=== PATIENT | female | born 1965 | race Caucasian/White ===

== ENCOUNTER → 2020-06-07 09:19 | Outpatient (BNVA) | payer BC, SELFPAY | PROVIDERS: PCP Internal Medicine; Referring Provider Internal Medicine; Visit Provider Nurse Practitioner | DX: K58.2 Mixed irritable bowel syndrome (principal); K52.831 Collagenous colitis; E11.9 Type 2 diabetes mellitus without complications ==

== ENCOUNTER → 2020-07-19 08:07 | Outpatient (BNVA) | payer BC, SELFPAY | PROVIDERS: PCP Internal Medicine; Referring Provider Internal Medicine; Visit Provider Internal Medicine Endocrinology, Diabetes & Metabolism | DX: E78.00 Pure hypercholesterolemia, unspecified (principal); I10 Essential (primary) hypertension; E11.21 Type 2 diabetes mellitus with diabetic nephropathy; E11.42 Type 2 diabetes mellitus with diabetic polyneuropathy; Z79.4 Long term (current) use of insulin; E66.01 Morbid (severe) obesity due to excess calories; E03.9 Hypothyroidism, unspecified; E55.9 Vitamin D deficiency, unspecified | CPT/HCPCS: 82947 ==

== ENCOUNTER → 2020-08-28 12:32 | Outpatient (BNVA) | payer BC, SELFPAY | PROVIDERS: PCP Internal Medicine; Visit Provider Physician Assistant | DX: M17.12 Unilateral primary osteoarthritis, left knee (principal) | CPT/HCPCS: 20610; J1020 ==

== ENCOUNTER → 2020-09-12 13:06 | Outpatient (BNVA) | payer BC, SELFPAY | PROVIDERS: Visit Provider Physician Assistant | DX: M17.11 Unilateral primary osteoarthritis, right knee (principal) | CPT/HCPCS: 20610; J1020 ==

== ENCOUNTER → 2020-09-23 09:31 | Outpatient (BNVA) | payer BC, SELFPAY | PROVIDERS: Visit Provider Orthopaedic Surgery ==

== ENCOUNTER 2020-09-27 08:00 | Outpatient (RCR) | payer BC, SELFPAY ==
--- NOTE | 2020-08-02 13:28 | MHC.PT.EP ---
[facility] [place] Office [place] Office [place] Office [address] Edvin Kathleen [address] [phone] F: [phone] F: [phone] F: [phone] F: [phone] Physical Therapy Plan of Care Date of Evaluation: 08/02/20 Date of Surgery: N/A Diagnosis: bilateral primary osteoarthritis of knees Assessment: pt presents w/ joint laxity, habitual posturing, and lower extremity weakness contributing to her pain. pt would benefit from generalized strengthening program, postural exercises to reduce genu valgum/recurvatum, and pain management techniques to improve exercise tolerance to promote weight loss. pt presents to physical therapy with pain, decreased range of motion, decreased strength, impaired functional mobility, impaired postural awareness, and gait deviations. pt is a good candidate for skilled PT due to age, potential remediation of impairments, typical disease/condition progression and prognosis, comorbidities, and motivation. pt would benefit from tailored strengthening and stretching exercise program, functional training, gait training, postural re-training, neuromuscular re-education, modalities as needed for pain, equipment safety demonstration. Frequency and Duration: The patient will be seen 2x/wk for 5 wks Short Term Goals: pt will be I w/ HEP to promote self-management of condition. pt will demo proper standing posture of narrow GRETTA, neutral foot/hip alignment, and neutral knee ext to promote equal weightbearing and reduce stress on anterior knee. Retirement Goals: pt will report statistically significant improvement in self-reported outcome measure, LEFI, to promote return to PLOF. pt will report <2/10 B knee pain w/ standing for >8 hours through work to to promote return to PLOF. Treatment Plan: Modalities to reduce pain, spasms and effusion. Manual therapy to restore motion and function. Therapeutic exercise to improve strength and flexibility. Neuromuscular re-education for posture and balance. Therapeutic activities to return to functional activities of daily living. Electronically signed by: Yudi Xavier PT, DPT Please sign and return to therapist. Thank you for your referral.
--- NOTE | 2020-10-11 14:45 | MHC.PT.DC ---
[facility] Office [place] Office [place] Office [address] Edvin Kathleen 140 [facility] [phone] F: [phone] F: [phone] F: [phone] F: [phone] Physical Therapy Discharge Report Diagnosis: bilateral primary osteoarthritis of knees Date of Surgery: N/A Date of Evaluation: 08/02/20 Date of Discharge: 10/11/20 Treatments to Date: 11 Cancellations to Date: 0 No Shows to Date: 0 Discharge Status: Patient Elected to Stop Discharge Summary: The patient called to inform us she had carpal tunnel surgery done recently and was told to avoid pressure on her hand for the next several weeks. She discharged herself from physical therapy. Overall, we were not seeing any improvement of her knee pain with the therapeutic exercises and activities given to her. She was still reporting high levels of pain even after receiving bilateral cortisone injections. The patient may benefit from receiving an MRI of bilateral knees to determine if there is ligamentous or meniscal damage. Electronically signed by: Yudi Xavier PT, DPT Please sign and return to therapist. Thank you for your referral.
== END 2020-10-11 14:45 | disposition other institution (70) ==
LOC: HO.PT 08:00
PROVIDERS: PCP Internal Medicine; Visit Provider Physician Assistant
DX: M17.0 Bilateral primary osteoarthritis of knee (principal)
CPT/HCPCS: 97035; 97110; 97140; 97162; 97530

== ENCOUNTER → 2020-10-08 14:03 | Outpatient (BNVA) | payer BC, SELFPAY | PROVIDERS: PCP Internal Medicine; Visit Provider Physician Assistant ==

== ENCOUNTER 2020-10-10 11:53 | Day surgery (SDC) | payer BC, SELFPAY ==
[2020-10-10 12:28] VITALS: BMI 57.5
[2020-10-10 12:41] VITALS: BP 144/93; PULSE 77; RESP 20; TEMP 36.2; O2SAT 98
[2020-10-10 12:41] LABS: Glucose, Whole Blood 165 mg/dL (60-115)
[2020-10-10 14:15] VITALS: BP 155/86; PULSE 85; RESP 20; TEMP 36; O2SAT 96
--- NOTE | 2020-10-10 14:25 | P.OP_ITS ---
Operative Note Operative Note Date of Service: 10/10/20 Narrative: Preop diagnosis: 1. left Carpal tunnel syndrome Postop diagnosis: 1. left Carpal tunnel syndrome Procedure: 1. left Carpal tunnel release Surgeon: Elissa Holly MD Anesthesia: local block using 1% lidocaine with epinephrine Findings: Thickened transverse carpal ligament. EBL: Less than 5 mL Specimens: None Complications: None Disposition: Brought to recovery room in stable condition Plan: Follow-up for 7-10 days for wound check and suture removal Indications: The patient is 55 years old, with left carpal tunnel syndrome that has been unresponsive to nonoperative management. The risks and benefits of operative treatment including but not limited to risk of damage to blood vessels, nerves, tendons, infection, persistent pain, persistent symptoms, or possible need for additional surgery were discussed with the patient and the patient wishes to proceed with surgery. Procedure: Once consent was obtained a local block was performed using a combination of 1% lidocaine with epinephrine. The patient was then brought back to the operating suite and placed on the operative table in supine position. A tourniquet was applied to the proximal aspect of the left upper extremity and the limb was prepped and draped in a standard surgical fashion. Once assured that we had a good block, a 1.5 cm longitudinal incision was made centered over the left carpal tunnel. The incision was made through the skin to the subcutaneous tissues using a #15 blade. Dissection was made down to the level of the transverse carpal ligament with care being taken to protect the palmar cu taneous nerve. Once the transverse carpal ligament was clearly visualized, a longitudinal incision was made in the transverse carpal ligament 1st using a #15 blade, then using tenotomy scissors under direct visualization. Care was taken to look for and protect the motor branch of the median nerve when seen in this area. Once satisfied with our carpal tunnel release the wound was copiously irrigated with normal saline and hemostasis was obtained with a brief period of local pressure. The skin edges were reapproximated with some 5.0 nylon suture material and a sterile dressing was applied. The patient appears to have tolerated the procedure well and with no complications. All digits were well vascularized at the conclusion of the case.
--- NOTE | 2020-10-10 14:25 | MHC.SHP ---
Pre-Procedural Eval Section B Chief Complaint: carpal tunnel Allergies: Allergies Allergy/AdvReac Type Severity Reaction Status Date / Time amlodipine Allergy Unknown swelling Verified 10/08/20 14:05 amoxicillin Allergy Unknown stomach Verified 10/08/20 14:05 upset canagliflozin [Invokana] Allergy Unknown Unknown Verified 10/08/20 14:05 lisinopril [LISINOPRIL] Allergy Unknown COUGH Verified 10/08/20 14:05 metformin Allergy Unknown Unknown Verified 10/08/20 14:05 metoprolol [METOPROLOL] Allergy Unknown SWELLING Verified 10/08/20 14:05 Plan I have reviewed the history and physical and performed a pertinent physical examination on my patient. No changes have occurred unless specified.
== END 2020-10-10 14:34 | disposition home or self-care (01) ==
PROVIDERS: PCP Internal Medicine; Visit Provider Orthopaedic Surgery
PROC: (CPT 64721; principal; 2020-10-10 13:10)
DX: G56.02 Carpal tunnel syndrome, left upper limb (principal); I10 Essential (primary) hypertension; J45.909 Unspecified asthma, uncomplicated; E11.21 Type 2 diabetes mellitus with diabetic nephropathy; E11.42 Type 2 diabetes mellitus with diabetic polyneuropathy; Z79.4 Long term (current) use of insulin; G47.33 Obstructive sleep apnea (adult) (pediatric); Z79.899 Other long term (current) drug therapy; Z88.1 Allergy status to other antibiotic agents; Z88.8 Allergy status to other drugs, medicaments and biological substances
CPT/HCPCS: 64721; 82947

== ENCOUNTER → 2020-10-21 09:24 | Outpatient (BNVA) | payer BC, SELFPAY | PROVIDERS: PCP Internal Medicine; Visit Provider Orthopaedic Surgery ==

== ENCOUNTER → 2020-11-11 10:52 | Outpatient (BNVA) | payer BC, SELFPAY | PROVIDERS: PCP Internal Medicine; Visit Provider Nurse Practitioner Family ==

== ENCOUNTER → 2020-11-25 10:04 | Outpatient (BNVA) | payer BC, OTHER, SELFPAY | PROVIDERS: PCP Internal Medicine; Visit Provider Nurse Practitioner ==

== ENCOUNTER → 2021-01-10 15:27 | Outpatient (BNVA) | payer OTHER, SELFPAY | PROVIDERS: PCP Internal Medicine; Visit Provider Nurse Practitioner ==

== ENCOUNTER → 2021-02-19 09:48 | Outpatient (BNVA) | payer OTHER, SELFPAY | PROVIDERS: PCP Internal Medicine; Visit Provider Orthopaedic Surgery | DX: G56.03 Carpal tunnel syndrome, bilateral upper limbs (principal); E78.00 Pure hypercholesterolemia, unspecified; I10 Essential (primary) hypertension; E66.01 Morbid (severe) obesity due to excess calories; Z68.43 Body mass index [BMI] 50.0-59.9, adult; Z88.1 Allergy status to other antibiotic agents; Z88.8 Allergy status to other drugs, medicaments and biological substances | CPT/HCPCS: 99212 ==

== ENCOUNTER 2021-03-13 08:52 | Day surgery (SDC) | payer OTHER, SELFPAY ==
[2021-03-13 09:02] VITALS: BP 139/83; PULSE 83; RESP 18; TEMP 36.3; O2SAT 96; BMI 58.4
[2021-03-13 09:28] LABS: Glucose, Whole Blood 156 mg/dL (60-115)
[2021-03-13 11:01] VITALS: BP 126/77; PULSE 70; RESP 20; TEMP 36.6; O2SAT 93
--- NOTE | 2021-03-13 11:10 | MHC.SHP ---
Pre-Procedural Eval Section A Date of Service: 03/13/21 Section B Chief Complaint: carpal tunnel Allergies: Allergies Allergy/AdvReac Type Severity Reaction Status Date / Time amlodipine Allergy Unknown swelling Verified 03/13/21 09:20 amoxicillin Allergy Unknown stomach Verified 03/13/21 09:20 upset canagliflozin [Invokana] Allergy Unknown Unknown Verified 03/13/21 09:20 lisinopril [LISINOPRIL] Allergy Unknown COUGH Verified 03/13/21 09:20 metformin Allergy Unknown Unknown Verified 03/13/21 09:20 metoprolol [METOPROLOL] Allergy Unknown SWELLING Verified 03/13/21 09:20 Plan I have reviewed the history and physical and performed a pertinent physical examination on my patient. No changes have occurred unless specified.
--- NOTE | 2021-03-13 11:10 | W.PM.OPN ---
Operative Note Operative Note Date of Service: 03/13/21 Narrative: Preop diagnosis: 1. Right Carpal tunnel syndrome Postop diagnosis: same Procedure: 1. Right Carpal tunnel release Surgeon: Elissa Holly MD Anesthesia: local block using 1% lidocaine with epinephrine Findings: Thickened transverse carpal ligament. EBL: Less than 5 mL Specimens: None Complications: None Disposition: Brought to recovery room in stable condition Plan: Follow-up for 7-10 days for wound check and suture removal Indications: The patient is 55 years old, with right carpal tunnel syndrome that has been unresponsive to nonoperative management. The risks and benefits of operative treatment including but not limited to risk of damage to blood vessels, nerves, tendons, infection, persistent pain, persistent symptoms, or possible need for additional surgery were discussed with the patient and the patient wishes to proceed with surgery. Procedure: Once consent was obtained a local block was performed using a combination of 1% lidocaine with epinephrine. The patient was then brought back to the operating suite and placed on the operative table in supine position. A tourniquet was applied to the proximal aspect of the right upper extremity and the limb was prepped and draped in a standard surgical fashion. Once assured that we had a good block, a 1.5 cm longitudinal incision was made centered over the carpal tunnel. The incision was made through the skin to the subcutaneous tissues using a #15 blade. Dissection was made down to the level of the transverse carpal ligament with care being taken to protect the palmar cutaneous nerve. Once the transverse carpal ligament was clearly visualized, a longitudinal incision was made in the transverse carpal ligament 1st using a #15 blade, then using tenotomy scissors under direct visualization. Care was taken to look for and protect the motor branch of the median nerve when seen in this area. Once satisfied with our carpal tunnel release the wound was copiously irrigated with normal saline and hemostasis was obtained with a brief period of local pressure. The skin edges were reapproximated with some 5.0 nylon suture material and a sterile dressing was applied. The patient appears to have tolerated the procedure well and with no complications. All digits were well vascularized at the conclusion of the case.
== END 2021-03-13 11:16 | disposition home or self-care (01) ==
PROVIDERS: PCP Internal Medicine; Visit Provider Orthopaedic Surgery
PROC: (CPT 64721; principal; 2021-03-13 10:00)
DX: G56.01 Carpal tunnel syndrome, right upper limb (principal); Z88.8 Allergy status to other drugs, medicaments and biological substances; E11.21 Type 2 diabetes mellitus with diabetic nephropathy; E11.42 Type 2 diabetes mellitus with diabetic polyneuropathy; Z79.4 Long term (current) use of insulin; I10 Essential (primary) hypertension; J45.909 Unspecified asthma, uncomplicated; G47.33 Obstructive sleep apnea (adult) (pediatric); E55.9 Vitamin D deficiency, unspecified; Z79.899 Other long term (current) drug therapy; E66.01 Morbid (severe) obesity due to excess calories; Z68.43 Body mass index [BMI] 50.0-59.9, adult
CPT/HCPCS: 64721; 82947

== ENCOUNTER → 2021-03-26 11:26 | Outpatient (BNVA) | payer OTHER, SELFPAY | PROVIDERS: PCP Internal Medicine; Visit Provider Orthopaedic Surgery | DX: G56.01 Carpal tunnel syndrome, right upper limb (principal); G56.02 Carpal tunnel syndrome, left upper limb | CPT/HCPCS: 99212 ==

== ENCOUNTER 2021-03-31 11:51 | Outpatient (REF) | payer OTHER, SELFPAY ==
[2021-03-31 13:00] LABS: MANUAL DIFF FLAG NO
[2021-03-31 13:13] LABS: Basophils Percent Auto 0.2 % (0-2); Eosinophils Absolute Auto 0.1 X10*3/uL (0.0-0.4); Eosinophils Percent Auto 1.6 % (0-4); Hematocrit 38.5 % (37-47); Hemoglobin 12.6 g/dl (12.0-16.0); Imm Gran Abs Auto 0.03 X10*3/uL (0.00-0.03); Imm Gran Pct Auto 0.3 % (0.0-0.4); Lymphocytes Absolute Auto 1.5 X10*3/uL (1.2-4.9); Lymphocytes Percent Auto 17.9 % (20-40); Mean Corpuscular HGB Conc 32.7 g/dl (31.0-35.0); Mean Corpuscular Volume 88.5 fL (80-98); Mean Platelet Volume 11.2 fL (9.4-12.3); Monocytes Absolute Auto 0.4 X10*3/uL (0.1-1.2); Monocytes Percent Auto 4.3 % (2-11); Neutrophils Absolute Auto 6.5 X10*3/uL (2.0-8.3); Neutrophils Percent Auto 75.7 % (45-73); Platelet Count 218 X10*3/uL (160-400); Red Blood Count 4.35 X10*6/uL (4.20-5.50); White Blood Count 8.6 X10*3/uL (4.8-10.8)
[2021-03-31 13:51] LABS: Alanine Aminotransferase 14 U/L (0-31); Albumin Level 3.7 g/dL (3.5-5.0); Alkaline Phosphatase 74 U/L (39-117); Anion Gap 19 (12-20); Aspartate Amino Transferase 15 U/L (5-31); Bilirubin Total 0.6 mg/dL (0.0-1.0); Blood Urea Nitrogen 13 mg/dL (9-16); Calcium 9.1 mg/dL (8.4-10.2); Carbon Dioxide 21 mmol/L (22-29); Chloride 103 mmol/L (96-108); Cholesterol 151 mg/dL; Estimated Glomerular Filt Rate > 60; Glucose Random 108 mg/dL (60-115); HDL Cholesterol 37 mg/dL; LDL Cholesterol Calculated 78 mg/dl; Potassium 3.5 mmol/L (3.3-5.1); Sodium 139 mmol/L (135-145); Total Protein 6.9 g/dL (6.5-8.0); Triglycerides 182 mg/dL
[2021-03-31 13:56] LABS: Estimated Average Glucose 146 mg/dL; Hemoglobin A1c % 6.7 %
[2021-03-31 13:58] LABS: Free T4 (Free Thyroxine) 1.02 ng/dL (0.71-1.85); Thyroid Stimulating Hormone 2.14 uIU/mL (0.32-4.0); Vitamin D 25-OH Total 41.9 ng/mL (>30)
[2021-03-31 15:05] LABS: Folate 18.4 ng/mL (> or = 4.0); Vitamin B12 1195 pg/mL (200-900)
[2021-03-31 15:43] LABS: Creatinine Urine 244.93 mg/dL; Microalbum/Creatinine Ratio Ur 17.9 ug/mg cr
== END 2021-03-31 11:52 | disposition home or self-care (01) ==
LOC: HO.LAB 11:51
PROVIDERS: PCP Internal Medicine; Visit Provider Internal Medicine
DX: E11.65 Type 2 diabetes mellitus with hyperglycemia (principal); Z79.4 Long term (current) use of insulin; E78.00 Pure hypercholesterolemia, unspecified
CPT/HCPCS: 36415; 80053; 80061; 82043; 82306; 82607; 82746; 83036; 84439; 84443; 85025

== ENCOUNTER → 2021-06-24 10:01 | Outpatient (BNVA) | payer OTHER, SELFPAY | PROVIDERS: PCP Internal Medicine; Visit Provider Nurse Practitioner Gerontology | DX: E11.42 Type 2 diabetes mellitus with diabetic polyneuropathy (principal); E78.00 Pure hypercholesterolemia, unspecified; E55.9 Vitamin D deficiency, unspecified; E66.01 Morbid (severe) obesity due to excess calories; I10 Essential (primary) hypertension; Z79.4 Long term (current) use of insulin | CPT/HCPCS: 82947; 83036 ==

== ENCOUNTER → 2021-07-17 16:02 | Outpatient (BNVA) | payer OTHER, SELFPAY | PROVIDERS: PCP Internal Medicine; Visit Provider Nurse Practitioner ==

== ENCOUNTER → 2021-12-23 09:57 | Outpatient (BNVA) | payer OTHER, SELFPAY | PROVIDERS: PCP Internal Medicine; Visit Provider Nurse Practitioner Gerontology | DX: E11.42 Type 2 diabetes mellitus with diabetic polyneuropathy (principal); E78.00 Pure hypercholesterolemia, unspecified; E55.9 Vitamin D deficiency, unspecified; E66.01 Morbid (severe) obesity due to excess calories; I10 Essential (primary) hypertension; Z79.4 Long term (current) use of insulin; Z68.44 Body mass index [BMI] 60.0-69.9, adult | CPT/HCPCS: 82947; 99212 ==

== ENCOUNTER 2022-05-29 08:59 | Outpatient (REF) | payer OTHER, SELFPAY ==
[2022-05-29 09:13] LABS: MANUAL DIFF FLAG NO
[2022-05-29 09:34] LABS: Basophils Percent Auto 0.5 % (0-2); Eosinophils Absolute Auto 0.1 X10*3/uL (0.0-0.4); Eosinophils Percent Auto 1.7 % (0-4); Hematocrit 39.7 % (37.0-47.0); Hemoglobin 13.3 g/dl (12.0-16.0); Imm Gran Abs Auto 0.02 X10*3/uL (0.00-0.03); Imm Gran Pct Auto 0.2 % (0.0-0.4); Lymphocytes Absolute Auto 1.5 X10*3/uL (1.2-4.9); Lymphocytes Percent Auto 18.6 % (20-40); Mean Corpuscular HGB Conc 33.5 g/dl (31.0-35.0); Mean Corpuscular Hemoglobin 29.1 pg (27.0-33.0); Mean Corpuscular Volume 86.9 fL (80.0-98.0); Mean Platelet Volume 9.5 fL (9.4-12.3); Monocytes Absolute Auto 0.4 X10*3/uL (0.1-1.2); Monocytes Percent Auto 5.2 % (2-11); Neutrophils Absolute Auto 5.9 x10*3/uL (2.0-8.3); Neutrophils Percent Auto 73.8 % (45-73); Platelet Count 272 X10*3/uL (160-400); Red Blood Count 4.57 X10*6/uL (4.20-5.50); Red Cell Distribution Width 13.6 % (11.0-16.0)
[2022-05-29 09:58] LABS: Estimated Average Glucose 163 mg/dL; Hemoglobin A1c % 7.3 %
[2022-05-29 10:18] LABS: Creatinine Urine 128.48 mg/dL; Microalbum/Creatinine Ratio Ur 21.7 ug/mg cr
[2022-05-29 10:26] LABS: Alanine Aminotransferase 15 U/L (0-31); Albumin Level 4.1 g/dL (3.5-5.0); Alkaline Phosphatase 84 U/L (39-117); Anion Gap 15 (12-20); Aspartate Amino Transferase 14 U/L (5-31); Bilirubin Total 1.1 mg/dL (0.0-1.0); Blood Urea Nitrogen 17 mg/dL (9-16); Calcium 9.2 mg/dL (8.4-10.2); Carbon Dioxide 27 mmol/L (22-29); Chloride 102 mmol/L (96-108); Cholesterol 165 mg/dL; Estimated Glomerular Filt Rate 52; Glucose Random 99 mg/dL (60-115); HDL Cholesterol 44 mg/dL; LDL Cholesterol Calculated 88 mg/dl; Potassium 3.4 mmol/L (3.3-5.1); Sodium 141 mmol/L (135-145); Total Protein 7.4 g/dL (6.5-8.0); Triglycerides 165 mg/dL
[2022-05-29 10:35] LABS: Free T4 (Free Thyroxine) 1.01 ng/dL (0.71-1.85); Vitamin D 25-OH Total 47.7 ng/mL (>30)
[2022-05-29 11:00] LABS: Folate 9.7 ng/mL (> or = 4.0); Vitamin B12 1199 pg/mL (200-900)
== END 2022-05-29 09:00 | disposition home or self-care (01) ==
LOC: HO.LAB 08:59
PROVIDERS: PCP Internal Medicine; Visit Provider Internal Medicine
DX: E11.65 Type 2 diabetes mellitus with hyperglycemia (principal); E78.00 Pure hypercholesterolemia, unspecified; E03.9 Hypothyroidism, unspecified; I10 Essential (primary) hypertension; Z79.4 Long term (current) use of insulin
CPT/HCPCS: 36415; 80053; 80061; 82043; 82306; 82607; 82746; 83036; 84439; 84443; 85025

== ENCOUNTER → 2022-06-24 09:45 | Outpatient (BNVA) | payer OTHER, SELFPAY | PROVIDERS: PCP Internal Medicine; Visit Provider Internal Medicine Endocrinology, Diabetes & Metabolism | DX: E11.65 Type 2 diabetes mellitus with hyperglycemia (principal); Z79.4 Long term (current) use of insulin | CPT/HCPCS: 82947; 99212 ==

== ENCOUNTER → 2022-08-18 09:03 | Outpatient (BNVA) | payer OTHER, SELFPAY | PROVIDERS: PCP Internal Medicine; Visit Provider Registered Nurse Diabetes Educator | DX: E11.65 Type 2 diabetes mellitus with hyperglycemia (principal); Z79.4 Long term (current) use of insulin | CPT/HCPCS: 99211 ==

== ENCOUNTER → 2022-10-06 09:56 | Outpatient (BNVA) | payer OTHER, SELFPAY | PROVIDERS: PCP Internal Medicine; Visit Provider Internal Medicine Endocrinology, Diabetes & Metabolism | DX: E11.65 Type 2 diabetes mellitus with hyperglycemia (principal); Z79.4 Long term (current) use of insulin | CPT/HCPCS: 82947; 83036; 99212 ==

== ENCOUNTER → 2022-12-29 10:32 | Outpatient (BNVA) | payer OTHER, SELFPAY | PROVIDERS: PCP Internal Medicine; Visit Provider Nurse Practitioner | DX: K58.2 Mixed irritable bowel syndrome (principal); K52.831 Collagenous colitis; R11.0 Nausea | CPT/HCPCS: 99212 ==

== ENCOUNTER 2022-12-29 20:17 | Outpatient (REF) | payer OTHER, SELFPAY ==
[2022-12-31 14:56] LABS: H Pylori Breath Test Negative (Negative)
== END 2022-12-29 20:18 | disposition home or self-care (01) ==
LOC: HO.LNP 20:17
PROVIDERS: Visit Provider Nurse Practitioner
DX: Z11.2 Encounter for screening for other bacterial diseases (principal); R11.0 Nausea
CPT/HCPCS: 83013

== ENCOUNTER 2023-01-15 10:16 | Outpatient (REF) | payer OTHER, SELFPAY ==
[2023-01-15 12:36] LABS: Appearance Urine Cloudy; Color Urine Yellow; Glucose Urine UA Negative (Negative); Leukocyte Esterase Urine Moderate (2+) (Negative); Nitrite Urine Negative (Negative); Specific Gravity - Urine 1.025 (1.005-1.025); UMIC TRIGGER UACC YES; Urine Blood Small (1+) (Negative); Urine Ketones Trace mg/dL (Negative); Urine Protein 30 (1+) mg/dL (Neg-Trace)
[2023-01-15 12:42] LABS: UACC Culture Trigger YES; WBC Urine >50 /HPF (0-5)
[2023-01-15 12:43] LABS: Bacteria Urine 2+ (None Seen); Hyaline Casts Urine 0-2 /LPF (0-2)
[2023-01-15 13:49] LABS: Creatinine Urine 251.61 mg/dL
== END 2023-01-15 10:17 | disposition home or self-care (01) ==
LOC: HO.LAB 10:16
PROVIDERS: PCP Internal Medicine; Visit Provider Internal Medicine
DX: E11.65 Type 2 diabetes mellitus with hyperglycemia (principal); Z79.4 Long term (current) use of insulin
CPT/HCPCS: 81001; 87086; 87088; 87186

== ENCOUNTER 2023-02-17 09:32 | Outpatient (REF) | payer OTHER, SELFPAY | END 2023-02-17 09:33 | disposition home or self-care (01) | LOC: HO.HMGCLDS 09:32 | PROVIDERS: PCP Internal Medicine; Visit Provider Internal Medicine | DX: K52.831 Collagenous colitis (principal); R11.0 Nausea; Z79.4 Long term (current) use of insulin | CPT/HCPCS: 81001; 87086; 87088; 87186; 99212 ==

== ENCOUNTER 2023-04-21 09:23 | Outpatient (AMB) | payer OTHER, SELFPAY ==
[2023-04-21 09:47] VITALS: BP 124/76; PULSE 82; BMI 58.9
--- NOTE | 2023-04-21 09:47 | MHC.OFFVIS ---
Intake Vital Signs 04/21/23 09:47 Height 5 ft 3 in Weight 332 lb 7.313 oz BMI 58.9 BP 124/76 Blood Pressure Location Rt brachial Position Sitting Pulse 82 Pulse Source Pulse Oximeter Intake Visit Reasons: f/u Type 2 DM Intake Note: Patient present today to follow up on Type 2 Diabetes Mellitus. 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 Required: No Accompanied by: Self / Same As Patient Allergies amlodipine Allergy (Unknown, Verified 04/21/23 09:49) swelling amoxicillin Allergy (Unknown, Verified 04/21/23 09:49) stomach upset lisinopril [LISINOPRIL] Allergy (Unknown, Verified 04/21/23 09:49) COUGH metformin Allergy (Unknown, Verified 04/21/23 09:49) Unknown metoprolol [METOPROLOL] Allergy (Unknown, Verified 04/21/23 09:49) SWELLING canagliflozin [Invokana] Adverse Reaction (Intermediate, Verified 04/21/23 09:49) yeast infection HPI HPI Comments History of Present Illness Details Patient is a 57-year-old female with DM type 2 diagnosed in 2013 who presents for management of diabetes. Past medical history: Diabetes type 2, HTN, hyperlipidemia obesity, carpal tunnel, IBS Micro and macrovascular complications: hx of + microalbumin which is now resolved, neuropathy Diabetes medications: Humulin U 500 50-55 units before breakfast and 50 units before dinner (does reduce by 20 units if only having a snack for dinner - rarely adjusts down). Off Januvia 100 mg daily. Intolerant of pioglitazone and metformin (diarrhea) and Invokana (yeast infection). On Trulicity 1.5 mg Qwkly . Having nausea from Trulicity but willing to continue Blood glucose monitoring: In the last 2 weeks average blood glucose 117 , 3 readings per day, range 72 to 196 . Average glucose is 117 with standard deviation of 26. 100% in range Symptoms reported: denies numbness, tingling, cramping in lower extremities Hypoglycemia: rare Hyperglycemia: denies urinary frequency, denies nocturia, denies polydypsia but has felt very dry this past week. 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 Laboratory Tests 11/06/21 14:10 Hgb A1c (Clinic) 6.8 H 03/31/21 03/31/21 03/31/21 12:15 12:15 12:15 Creatinine 0.95 Estimated GFR > 60 Hemoglobin A1c % 6.7 Triglycerides 182 Cholesterol 151 LDL Cholesterol, C alc 78 HDL Cholesterol 37 Vitamin B12 1195 H 25-OH Vitamin D To jose 41.9 TSH 2.14 Free T4 1.02 Microalb/Creat Rat io 03/31/21 13:50 Creatinine Estimated GFR Hemoglobin A1c % Triglycerides Cholesterol LDL Cholesterol, C alc HDL Cholesterol Vitamin B12 25-OH Vitamin D To jose TSH Free T4 Microalb/Creat Rat io 17.9 PFSH Medical History Asthma Carpal tunnel syndrome Carpal tunnel syndrome of left wrist Carpal tunnel syndrome of right wrist Diabetic nephropathy associated with type 2 diabetes mellitus Diabetic polyneuropathy associated with type 2 diabetes mellitus Hypercholesterolemia Hypertension 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 right 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 Morbid obesity Obesity Obstructive sleep apnea Osteoarthritis of knees, bilateral Subclinical hypothyroidism Type 2 diabetes mellitus with hyperglycemia Vitamin D deficiency Surgical History Carpal tunnel syndrome of left wrist History of carpal tunnel release of both wrists History of section History of colonoscopy Family History Father AAA (abdominal aortic aneurysm) Hypertension TIA (transient ischemic attack) Mother FH: thyroid condition Social History Household Members: Spouse and Children Housing: House Alcohol intake: never Patient Tobacco Use Status: Never used Tobacco e-Cigarette/Vaping Use: Never Used Second Hand Smoke Exposure: No service: No Current occupational status: employed 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 Absence of acromegalic features. Neck exam reveals nl size thyroid about 15 gms. No thyroid nodules palpable. No carotid bruits present. Lungs CTA. Heart S1 S2, Reg R/R. No M/R/ G. Skin exam reveals absence of vitiligo or acanthosis nigricans. Abdominal exam reveals Soft NT/ND with NA BS. No organomegaly present. Neck Other: . Extrem Other: Visual exam of foot performed. No ulcerations or open lesions. No onchomycosis, no callouses.Pulses 2 + distally Sensation intact to monofilament exam. Vibratory sensation sensed is decreased with 128 Hz tuning fork Results Reviewed Results Reviewed: 04/21/23 09:53 Glucose, Whole Blood Routine Laboratory Last Values Glucose (Clinic) 102 mg/dL (60-115) 04/21/23 09:53 Assessment & Plan Assessment & Plan (1) Type 2 diabetes mellitus with hyperglycemia: Comment: [facility] 2021 Code(s): E11.65 - Type 2 diabetes mellitus with hyperglycemia Qualifiers: Diabetes mellitus predatory animal exterminator insulin use: with longterm use Qualified Code(s): E11.65 - Type 2 diabetes mellitus with hyperglycemia; Z79.4 - correction (current) use of insulin Plan: This is a 57-year-old white female with a history of type 2 diabetes being managed with U-500 insulin and Trulicity with good optimal glycemic control and known microvascular complications namely neuropathy. Plan is to continue the current regimen. In future, could consider switching from Trulicity to Mounjaro . Will prescribe Dexcom G7 Medications: New blood-glucose sensor (Dexcom G7 Sensor device) As directed change every 10 days 3 ea 4RF Coding Level of Care Code Est Pt Level 4 (70699) Diagnoses Type 2 diabetes mellitus with hyperglycemia E11.65; Z79.4 Diabetes mellitus predatory animal exterminator insulin use: with predatory animal exterminator use
[2023-04-21 10:00] LABS: Glucose, Whole Blood 102 mg/dL (60-115)
== END 2023-04-21 10:44 | disposition home or self-care (01) ==
PROVIDERS: PCP Internal Medicine; Visit Provider Internal Medicine Endocrinology, Diabetes & Metabolism
DX: E11.65 Type 2 diabetes mellitus with hyperglycemia (principal); Z79.4 Long term (current) use of insulin
CPT/HCPCS: 99214

== ENCOUNTER → 2023-04-21 09:23 | Outpatient (BNVA) | payer OTHER, SELFPAY | PROVIDERS: Visit Provider Internal Medicine Endocrinology, Diabetes & Metabolism | DX: E11.65 Type 2 diabetes mellitus with hyperglycemia (principal); Z79.4 Long term (current) use of insulin | CPT/HCPCS: 82947; 99212 ==

== ENCOUNTER 2023-05-07 10:35 | Outpatient (AMB) | payer OTHER, SELFPAY ==
[2023-05-07 10:46] VITALS: BP 138/88; PULSE 86; O2SAT 96; BMI 58.8
--- NOTE | 2023-05-07 10:46 | MHC.PC.OV ---
Vital Signs 05/07/23 10:46 Height 5 ft 3 in Weight 332 lb BMI 58.8 BP 138/88 Blood Pressure Location Lt brachial Position Sitting Pulse 86 Pulse Source Pulse Oximeter Pulse Oximetry (%) 96 Oxygen Delivery Method Room Air Intake Visit Reasons: Leg Pain Allergies amlodipine Allergy (Unknown, Verified 05/07/23 10:46) swelling amoxicillin Allergy (Unknown, Verified 05/07/23 10:46) stomach upset lisinopril [LISINOPRIL] Allergy (Unknown, Verified 05/07/23 10:46) COUGH metformin Allergy (Unknown, Verified 05/07/23 10:46) Unknown metoprolol [METOPROLOL] Allergy (Unknown, Verified 05/07/23 10:46) SWELLING canagliflozin [Invokana] Adverse Reaction (Intermediate, Verified 05/07/23 10:46) yeast infection Tobacco use date assessed: 02/05/23 Dental Screening Dental Screen Date: 05/07/23 Did you have a dental visit in the last 12 months?: Yes Did you have a dental problem in the last 6 months where you did not have access to dental care?: No Was dental information given to patient?: Patient has dentist HPI Leg Pain HPI Details 57-year-old obese female with diabetes mellitus obstructive sleep apnea hypertension hypercholesterol E coming in for follow-up. Last seen in January 2023. Patient had colonoscopy up-to-date mammogram due. Patient follows up with Dr. Holland chronology patient is on the U 500 insulin and Trulicity patient also follows up with Gastroenterology for the collagenous colitis NSAIDs could trigger collagenous colitis. Patient is having plans of EGD and gastric emptying time. Patient complains of feeling nauseous and having diarrhea and was concerned about the Trulicity. Patient was advised to change the dose but because of the incoming study would like to hold off from changing. Patient also complains of right thigh and leg pain because of the morbid obesity difficult to assess for swelling but there is pain on the thigh and leg. With the right leg causing problems patient does complain about pain on left knee. 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 Morbid obesity Obesity Obstructive sleep apnea Osteoarthritis of knees, bilateral Subclinical hypothyroidism Type 2 diabetes mellitus with hyperglycemia Vitamin D deficiency Surgical History Carpal tunnel syndrome of left wrist History of carpal tunnel release of both wrists History of section History of colonoscopy Family History (Updated 05/07/23 @ 10:47 by Elvie Mccrary CMA) Father AAA (abdominal aortic aneurysm) Hypertension TIA (transient ischemic attack) Mother FH: thyroid condition Social History Household Members: Spouse and Children Housing: House Alcohol intake: never Patient Tobacco Use Status: Never used Tobacco e-Cigarette/Vaping Use: Never Used Second Hand Smoke Exposure: No service: No Current occupational status: employed 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 1. Little interest or pleasure in doing things: not at all 2. Feeling down, depressed, or hopeless: not at all 3. Trouble falling or staying asleep, or sleeping too much: not at all 4. Feeling tired or having little energy: nearly every day 5. Poor appetite or overeating: more than half the days 6. Feeling bad about yourself - or that you are a failure or have let yourself or your family down: not at all 7. Trouble concentrating on things, such as reading the newspaper or watching television: not at all 8. Moving or speaking so slowly that other people could have noticed. Or the opposite - being so fidgety or restless that you have been moving around a lot more than usual: not at all 9. Thoughts that you would be better off or of hurting yourself in some way: not at all Total score: 5 Depression Screening Interpretation: Negative Source: Developed by Drs. Francisco Javier Deleon, Cynthia Osborne, Abisai Devries and colleagues, with an educational sonali from [facility]. Thrive Questionnaire Date Thrive assessed: 02/05/23 AUDIT C Alcohol Use Questionnaire (AUDIT-C) 1. How often do you have a drink containing alcohol?: Never 3. How often do you have six or more drinks on one occasion?: Never Total Score: 0 MY-7 AMB Questionnaire MY-7 Date MY - 7 assessed: 02/05/23 Source: Developed by Drs. Francisco Javier Deleon, Cynthia Osborne, Abisai Devries and colleagues, with an educational sonali from [facility]. Physical exam (Primary Care) Vital Signs: Last Vital Signs Pulse 86 05/07/23 10:46 BP 138/88 05/07/23 10:46 Pulse Ox 96 05/07/23 10:46 Oxygen Delivery Method Room Air 05/07/23 10:46 BMI result Body Mass Index 58.8 Tobacco/Smoking Status: Tobacco use Status Tobacco use date assessed 02/05/23 05/07/23 10:47 Patient Tobacco Use Status Never used Tobacco 05/07/23 10:47 e-Cigarette/Vaping Use Never Used 05/07/23 10:47 PHQ-9: PHQ-9 Score PHQ-9: Total score 5 05/07/23 10:58 Depression Screening Interpretation: Negative Thrive Assessment: Date of Thrive Assessment Date Thrive assessed 02/05/23 05/07/23 10:47 Const General: alert; No acute distress Eyes Conjunctivae: conjunctivae normal Resp Auscultation: clear to auscultation bilaterally Cardio Rate: regular rate Rhythm: regular rhythm GI Inspection: Yes normal to inspection Extrem Other: tender on the elmo muscle on palpation , no redness, 1 + swelling General: Yes edema Results AMB Hemoglobin A1c AMB Hemoglobin A1c 5.8 % Last Edit by Elvie Mccrary CMA on 05/07/23 11:00 Results Reviewed Results Reviewed: Laboratory Last Values Hgb A1c (Clinic) 5.8 % (4.0-6.0) 05/07/23 10:48 Assessment and Plan Assessment & Plan (1) Obesity: Code(s): E66.9 - Obesity, unspecified Qualifiers: Obesity type: due to excess calories Obesity classification: adult class 3 (BMI >= 40) Serious obesity comorbidity presence: with serious comorbidity Body mass index: BMI 50.0-59.9 Qualified Code(s): E66.01 - Morbid (severe) obesity due to excess calories; Z68.43 - Body mass index [BMI] 50.0-59.9, adult Plan: Diet and exercise (2) Type 2 diabetes mellitus with hyperglycemia: Comment: [facility] 2021 Code(s): E11.65 - Type 2 diabetes mellitus with hyperglycemia Qualifiers: Diabetes mellitus fpc insulin use: with fpc use Qualified Code(s): E11.65 - Type 2 diabetes mellitus with hyperglycemia; Z79.4 - 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 Hemoglobin A1c goal of less than 6.5. (3) Hypertension: Code(s): I10 - Essential (primary) hypertension Qualifiers: Hypertension type: essential hypertension Qualified Code(s): I10 - Essential (primary) hypertension Plan: Blood pressure plan on losartan 25 mg once a day hydrochlorothiazide 12.5 mg once a day (4) Hypercholesterolemia: Code(s): E78.00 - Pure hypercholesterolemia, unspecified Plan: Avoid fried foods, chicken skin, eggs, butter margarine, pastries and meat. Be it pork or beef they have a lot of cholesterol LDL goal of less than 100 and triglyceride of less than 150. Patient needs blood work (5) Obstructive sleep apnea: Comment: CPAP use Code(s): G47.33 - Obstructive sleep apnea (adult) (pediatric) Plan: Continue to use the CPAP more than 4 hours a night and benefits from the (6) Irritable bowel syndrome with both constipation and diarrhea: Code(s): K58.2 - Mixed irritable bowel syndrome Plan: Patient follows up with Gastroenterology (7) Leg pain, right: Code(s): M79.604 - Pain in right leg Plan: will check for DVT . Orders: Orders US venous duplex LE RT Today M79.604 - Pain in right leg AMB Hemoglobin A1c Today Z13.9 - Encounter for screening, unspecified Coding Level of Care Code Est Pt Level 4 (49486) Diagnoses Class 3 severe obesity due to excess calories with serious comorbidity and body mass index (BMI) of 50.0 to 59.9 in adult E66.01; Z68.43 Obesity type: due to excess calories Obesity classification: adult class 3 (BMI >= 40) Serious obesity comorbidity presence: with serious comorbidity Body mass index: BMI 50.0-59.9 Type 2 diabetes mellitus with hyperglycemia, with long-term current use of insulin E11.65; Z79.4 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
== END 2023-05-07 11:35 | disposition home or self-care (01) ==
PROVIDERS: PCP Internal Medicine; Visit Provider Internal Medicine
DX: I10 Essential (primary) hypertension (principal); E66.01 Morbid (severe) obesity due to excess calories; Z68.43 Body mass index [BMI] 50.0-59.9, adult; E11.65 Type 2 diabetes mellitus with hyperglycemia; Z79.4 Long term (current) use of insulin; K58.2 Mixed irritable bowel syndrome; E78.00 Pure hypercholesterolemia, unspecified; G47.33 Obstructive sleep apnea (adult) (pediatric); M79.604 Pain in right leg
CPT/HCPCS: 83036; 99214

== ENCOUNTER 2023-05-07 12:18 | Outpatient (REF) | payer OTHER, SELFPAY ==
--- NOTE | ~2023-05-07 | US_ITS ---
EXAMINATION: US VENOUS ULTRASOUND WITH DOPPLER LOWER EXTREMITY, RIGHT CLINICAL INFORMATION: Right leg pain. COMPARISON: Radiographs of the knee from 03/21/2020 and 04/04/2020 TECHNIQUE: Ultrasound of the deep veins is performed from the hip to the calf with compression sonography and color and pulse Doppler assessment. Spectral analysis with color-flow imaging is performed. FINDINGS: The common femoral vein is compressible and exhibits a normal phasic waveform; this suggests that the iliac veins are widely patent above. Within the proximal thigh, the visualized profunda femoris vein is normal. The examined greater saphenous vein and saphenofemoral junction are normal. Superficial femoral vein is patent in the proximal, mid and distal thigh. Popliteal vein is normal to the level of the trifurcation. On compression joshi scale and color Doppler images, the visualized posterior tibial and peroneal veins are normal. Within the popliteal fossa, there is a heterogeneous, septated 5.2 x 3.2 x 4.3 cm Kovacs's cyst. Note that patient had osteoarthritis of the right knee (severe at medial tibiofemoral compartment) on 03/21/2020. US/US venous duplex LE RT IMPRESSION: * No evidence of deep vein thrombosis in the right lower extremity. * Complex septated Kovacs's cyst of the posterior right knee.
== END 2023-05-07 12:19 | disposition home or self-care (01) ==
LOC: HO.US 12:18
PROVIDERS: PCP Internal Medicine; Visit Provider Internal Medicine
DX: M79.604 Pain in right leg (principal)
CPT/HCPCS: 93971

== ENCOUNTER → 2023-05-12 07:57 | Outpatient (REF) | payer OTHER, SELFPAY ==
--- NOTE | ~2023-05-12 | NM_ITS ---
EXAMINATION: PA RADIONUCLIDE SOLID FOOD GASTRIC EMPTYING 4-HOUR STUDY CLINICAL INFORMATION: Nausea. COMPARISON: None available. TECHNIQUE: A standard meal consisting of 4 oz of Egg Beaters brand tagged with 960 microcuries Tc-99m Sulfur Colloid, 8 oz water and 2 slices of toast with jelly was administered orally to the patient. Images were obtained using a dual head gamma camera in the anterior and posterior projections over of the stomach immediately post ingestion and at hourly intervals up to 4 hours post ingestion. The anterior and posterior counts at each time interval were averaged using the geometric mean and expressed as percentage of the immediate post ingestion counts. FINDINGS: There is good visualization of activity in the stomach immediately post ingestion. As the study progresses, there is delayed clearance of activity from the stomach and poor visualization of small bowel activity. By the end of the study, there is significant retention noted in the stomach. Retention in the stomach at each time interval was: 1 hour 92% (normal 37%-90%) 2 hours 90% (normal 30%-60%) 3 hours 101% 4 hours 89% (normal 0%-10%) PA/PA gastric emptying study IMPRESSION: Abnormal delayed 4 hour gastric emptying study. (For solid meal, rapid gastric emptying is less than 30% at 60 minutes. Delayed gastric emptying criteria is more than 60% remaining at 120 minutes or more than 10% at 240 minutes. The 4-hour value is the best discriminator of a normal or abnormal result). Gastric emptying study grading per JNMT Consensus Recommendations in 2008 (https://tech.snmjournals.org/content/36/144) Grade 1 (mild retention): 11-20% at 4h Grade 2 (moderate retention): 21-35% at 4h Grade 3 (severe retention): 36-50% at 4h Grade 4 (very severe retention): >50% retention at 4h
== END ==
LOC: HO.NUCMED 07:57
PROVIDERS: PCP Internal Medicine; Visit Provider Nurse Practitioner
DX: R11.0 Nausea (principal); E11.65 Type 2 diabetes mellitus with hyperglycemia
CPT/HCPCS: 78264; A9541

== ENCOUNTER 2023-05-19 08:52 | Outpatient (REF) | payer OTHER, SELFPAY ==
[2023-05-19 09:28] LABS: MANUAL DIFF FLAG NO
[2023-05-19 10:14] LABS: Basophils Percent Auto 0.5 % (0-2); Eosinophils Absolute Auto 0.4 X10*3/uL (0.0-0.4); Eosinophils Percent Auto 4.7 % (0-4); Hematocrit 40.6 % (37.0-47.0); Hemoglobin 13.6 g/dl (12.0-16.0); Imm Gran Abs Auto 0.02 X10*3/uL (0.00-0.03); Imm Gran Pct Auto 0.2 % (0.0-0.4); Lymphocytes Percent Auto 23.7 % (20-40); Mean Corpuscular HGB Conc 33.5 g/dl (31.0-35.0); Mean Corpuscular Hemoglobin 29.2 pg (27.0-33.0); Mean Corpuscular Volume 87.1 fL (80.0-98.0); Mean Platelet Volume 9.9 fL (9.4-12.3); Monocytes Absolute Auto 0.5 X10*3/uL (0.1-1.2); Monocytes Percent Auto 5.8 % (2-11); Neutrophils Absolute Auto 5.5 x10*3/uL (2.0-8.3); Neutrophils Percent Auto 65.1 % (45-73); Platelet Count 281 X10*3/uL (160-400); Red Blood Count 4.66 X10*6/uL (4.20-5.50); Red Cell Distribution Width 13.6 % (11.0-16.0); White Blood Count 8.5 X10*3/uL (4.8-10.8)
[2023-05-19 10:58] LABS: Estimated Average Glucose 123 mg/dL; Hemoglobin A1c % 5.9 % (<6.0)
[2023-05-19 11:04] LABS: Alanine Aminotransferase 15 U/L (0-31); Albumin Level 3.9 g/dL (3.5-5.0); Alkaline Phosphatase 85 U/L (39-117); Anion Gap 15 (12-20); Aspartate Amino Transferase 16 U/L (5-31); Blood Urea Nitrogen 17 mg/dL (9-16); Calcium 9.7 mg/dL (8.4-10.2); Carbon Dioxide 26 mmol/L (22-29); Chloride 103 mmol/L (96-108); Cholesterol 136 mg/dL (<200); Estimated Glomerular Filt Rate 51; Glucose Random 110 mg/dL (60-115); HDL Cholesterol 36 mg/dL (>40); LDL Cholesterol Calculated 69 mg/dL (<100); Potassium 3.3 mmol/L (3.3-5.1); Sodium 141 mmol/L (135-145); Total Protein 7.5 g/dL (6.5-8.0); Triglycerides 156 mg/dL (<150)
[2023-05-19 11:27] LABS: Folate 6.6 ng/mL (> or = 4.0); Vitamin B12 1407 pg/mL (200-900)
[2023-05-19 11:30] LABS: Free T4 (Free Thyroxine) 0.99 ng/dL (0.71-1.85); Thyroid Stimulating Hormone 1.64 uIU/mL (0.32-4.0); Vitamin D 25-OH Total 47.9 ng/mL (>30)
[2023-05-19 12:27] LABS: Microalbum/Creatinine Ratio Ur 12.6 ug/mg cr (<30)
== END 2023-05-19 08:53 | disposition home or self-care (01) ==
LOC: HO.LAB 08:52
PROVIDERS: PCP Internal Medicine; Visit Provider Internal Medicine
DX: K52.831 Collagenous colitis (principal); E11.65 Type 2 diabetes mellitus with hyperglycemia; E78.00 Pure hypercholesterolemia, unspecified; Z79.4 Long term (current) use of insulin
CPT/HCPCS: 36415; 80053; 80061; 82043; 82306; 82570; 82607; 82746; 83036; 84439; 84443; 85025; 99212

== ENCOUNTER 2023-05-19 09:35 | Outpatient (AMB) | payer OTHER, SELFPAY ==
[2023-05-19 09:40] VITALS: BP 120/67; PULSE 78; BMI 57.5
--- NOTE | 2023-05-19 09:40 | A.OFFVIS_ITS ---
Intake Vital Signs 05/19/23 09:40 Height 5 ft 3 in Weight 324 lb 8.327 oz BMI 57.5 BP 120/67 Blood Pressure Location Lt brachial Position Sitting Pulse 78 Intake Visit Reasons: Nausea/vomiting/diarrhea Intake Note: Patient presents to in office visit today in follow up of IBS and gastric emptying scan results. CC: Pt reports she is doing better since she started taking the metoclopramide. She continues to have a little bit of diarrhea. She states she was sick last week with a lot of foul smelling burping, nausea, and vomiting. She believed it was the Trulicity causeing her this symptoms and she hasn't take it this week. 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 Accompanied by: Self / Same As Patient Allergies amlodipine Allergy (Unknown, Verified 05/07/23 10:46) swelling amoxicillin Allergy (Unknown, Verified 05/07/23 10:46) stomach upset lisinopril [LISINOPRIL] Allergy (Unknown, Verified 05/07/23 10:46) COUGH metformin Allergy (Unknown, Verified 05/07/23 10:46) Unknown metoprolol [METOPROLOL] Allergy (Unknown, Verified 05/07/23 10:46) SWELLING canagliflozin [Invokana] Adverse Reaction (Intermediate, Verified 05/07/23 10:46) yeast infection HPI Nausea/vomiting/diarrhea HPI Details Assessment & Plan (1) Collagenous colitis: Code(s): K52.831 - Collagenous colitis Plan: Her nausea continues, about bid and worse when she is tired, maybe? She had bad diarrhea the last couple of days, but has been taking NSAIDS for her knees - so this is likely going to trigger her collagenous colitis. Discussed tylenol and Voltaren gel. She now has a UTI likely from the diarrhea. Urine cultures shows Klebsiella but her primary care provider is trying to contact her as we speak and I will leave it to him to treat. We will get GES and EGD : pt agrees. We review the H pylori breath test was negative. We discuss alpha lipoic acid which she takes for NIDDM and if this could cause s/e of diarrhea - this is rare but it can. Suggest a vacation from the supplement to see how it effects her. After GES or EGD whichever is first. 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 (For solid meal, rapid gastric emptying is less than 30% at 60 minutes. Delayed gastric emptying criteria is more than 60% remaining at 120 minutes or more than 10% at 240 minutes. The 4-hour value is the best discriminator of a normal or abnormal result). Gastric emptying study grading per JNMT Consensus Recommendations in 2008 (https://tech.snmjournals.org/anselmo nt/) Grade 1 (mild retention): 11-20% at 4h Grade 2 (moderate retention): 21-35% at 4h Grade 3 (severe retention): 36-50% at 4h Grade 4 (very severe retention): >50% retention at 4h EGD has not yet heard from [facility] BIOPSY TODAY'S VISIT She tells me that she stop her Trulicity this week and that has helped quite a bit with her nausea vomiting and burping that smells foul. This to is to be expected since Trulicity does slow down gastric emptying. We reviewed the gas tric emptying study that does show a delay but I am uncertain if this is [place] to her diabetes or whether this is an affect from the Trulicity. She was on 1.5 mg once a week. She had discussed with her primary care potentially lowering the dose and since she can not get in to see him until September I will try prescribing this 0.75 mg dose. Hopefully, once we had the Reglan and titrated slowly she will be able to tolerate this medication that is very important to help her manage her diabetes. She tolerated the 5 mg Reglan 4 times a day very well without side effects. Because of her rather large body mass/BMI I think we can increase the dose to 10 mg 4 times a day. This may help her to titrate up the Trulicity to wear that needs to be. Apparently they are also trying to work on getting her age glucose blood monitor but insurance has been difficult. Return office visit in 3 weeks to see how she is tolerating the new medication combination. She has not yet heard about the endoscopy and I tell her that they have been waiting to hear back from her so she will try to call them to get this scheduled. 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 Morbid obesity Obesity Obstructive sleep apnea Osteoarthritis of knees, bilateral Subclinical hypothyroidism Type 2 diabetes mellitus with hyperglycemia Vitamin D deficiency Surgical History Carpal tunnel syndrome of left wrist History of carpal tunnel release of both wrists History of section History of colonoscopy Family History (Updated 05/07/23 @ 10:47 by Elvie Mccrary CMA) Father AAA (abdominal aortic aneurysm) Hypertension TIA (transient ischemic attack) Mother FH: thyroid condition Social History Household Members: Spouse and Children Housing: House Alcohol intake: never Patient Tobacco Use Status: Never used Tobacco e-Cigarette/Vaping Use: Never Used Second Hand Smoke Exposure: No service: No Current occupational status: employed 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 Cognitive needs: No Hearing needs: No Vision needs: No Review of Systems Const Denies fatigue, Denies fever(s), Denies night sweats, Reports poor appetite and Denies weight loss ENT Reports Normal hearing present, Denies dental pain, Denies dysphagia, Denies hearing loss, Denies mouth pain, Denies odynophagia, Denies throat swelling, Denies tongue swelling and Reports other (Dentition adequate) Card Reports no additional complaints Resp Reports no additional complaints GI Denies abdominal pain, Reports belching, Denies melena, Denies bloating, Denies hematochezia, Denies constipation, Denies GI cramping, Denies dysphagia, Denies excessive flatus, Denies early satiety, Reports heartburn, Reports diarrhea, Reports nausea, Denies odynophagia, Denies vomiting and Denies hematemesis Skin/Breast Denies pruritus, Denies lesions, Denies rash and Denies jaundice Neuro Reports Normal hearing present and Denies Abnormal speech present Endo Denies fatigue Aller/Immun Denies throat swelling and Denies tongue swelling Physical Exam Const General: cooperative, no acute distress, well developed and well groomed Nutritional Appearance: well nourished and obese Orientation/consciousness: oriented to person, oriented to place and oriented to time Limitations: No language barrier and ambulation with cane HEENT Head: Yes normocephalic and Yes atraumatic Eyes General: appearance normal, both eyes and all related structures Pupils: Equal, round and reactive pupils present Neck Neck: Yes normal visual inspection and Yes no lymphadenopathy Thyroid: Thyroid normal Resp Effort & Inspection: normal respiratory effort and able to speak in complete se ntences Auscultation: clear to auscultation bilaterally Cardio Rate: regular rate Rhythm: regular rhythm Heart sounds: Normal, physiologic split S2 sound present Peripheral pulses: radial pulses present and posterior tibial pulses present GI Inspection: No distended, Yes Abdominal panniculus present and Yes obesity Palpation (GI): Soft to palpation, nontender, no guarding, not rigid and No hepatosplenomegaly present Percussion: Yes normal to percussion Auscultation: normal bowel sounds Rectal Exam - Female: deferred Skin General skin exam: no rashes or lesions noted, turgor normal, skin not dry, no jaundice, No spider nevi and no striae Rashes: no rashes Nails: normal Neuro General: oriented to person, oriented to place and oriented to time Cranial nerves: Yes Equal, round and reactive pupils present and Yes Normal hearing present Speech: No Abnormal speech present Extrem General: Yes normal to inspection, No clubbing, No cyanosis and No edema Psych Appearance: grossly normal and well kempt Mental Status: mental status grossly normal Speech and movement: Normal speech and movement present Affect: normal affect Attitude: cooperative Thought process: Normal thought process present and not confabulating Thought content: Normal thought content present Insight: Limited insight present (Psych) Judgement: Limited judgement present (Psych) Results Reviewed Results Reviewed: GASTRIC EMPTYING STUDY 05/12/23 MPRESSION: Abnormal delayed 4 hour gastric emptying study. (For solid meal, rapid gastric emptying is less than 30% at 60 minutes. Delayed gastric emptying criteria is more than 60% remaining at 120 minutes or more than 10% at 240 minutes. The 4-hour value is the best discriminator of a normal or abnormal result). Gastric emptying study grading per JNMT Consensus Recommendations in 2008 (https://tech.snmjournals.org/content/36/44) Grade 1 (mild retention): 11-20% at 4h Grade 2 (moderate retention): 21-35% at 4h Grade 3 (severe retention): 36-50% at 4h Grade 4 (very severe retention): >50% retention at 4 Assessment & Plan Assessment & Plan (1) Gastroparesis: Code(s): K31.84 - Gastroparesis Plan: EGD has not yet heard from [facility] BIOPSY TODAY'S VISIT She tells me that she stop her Trulicity this week and that has helped quite a bit with her nausea vomiting and burping that smells foul. This to is to be expected since Trulicity does slow down gastric emptying. We reviewed the gastric emptying study that does show a delay but I am uncertain if this is [place] to her diabetes or whether this is an affect from the Trulicity. She was on 1.5 mg once a week. She had discussed with her primary care potentially lowering the dose and since she can not get in to see him until September I will try prescribing this 0.75 mg dose. Hopefully, once we had the Reglan and titrated slowly she will be able to tolerate this medication that is very important to help her manage her diabetes. She tolerated the 5 mg Reglan 4 times a day very well without side effects. Because of her rather large body mass/BMI I think we can increase the dose to 10 mg 4 times a day. This may help her to titrate up the Trulicity to wear that needs to be. Apparently they are also trying to work on getting her age glucose blood monitor but insurance has been difficult. Return office visit in 3 weeks to see how she is tolerating the new medication combination. She has not yet heard about the endoscopy and I tell her that they have been waiting to hear back from her so she will try to call them to get this scheduled. 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 Medications: New metoclopramide HCl (Reglan) 10 mg PO QIDACHS 120 tabs 6RF K31.84 - Gastroparesis dulaglutide (Trulicity) 0.75 mg (0.5 mL) subcut QWEEK 2 mL 4RF E11.65 - Type 2 diabetes mellitus with hyperglycemia On Hold dulaglutide (Trulicity) Hold Comment: Doctor's Order 1.5 mg (0.5 mL) subcut QWEEK 2 mL 5RF metoclopramide HCl (Reglan) Hold Comment: Doctor's Order 5 mg PO QIDACHS 120 tabs 6RF K31.84 - Gastroparesis Coding Level of Care Code Est Pt Level 4 (12939) Diagnoses Gastroparesis K31.84 Collagenous colitis K52.831 Irritable bowel syndrome with both constipation and diarrhea K58.2 Type 2 diabetes mellitus with hyperglycemia, with long-term current use of insulin E11.65; Z79.4 Diabetes mellitus 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
== END 2023-05-19 10:09 | disposition home or self-care (01) ==
PROVIDERS: PCP Internal Medicine; Visit Provider Nurse Practitioner
DX: K52.831 Collagenous colitis (principal); K31.84 Gastroparesis; E11.65 Type 2 diabetes mellitus with hyperglycemia; Z79.4 Long term (current) use of insulin; K58.2 Mixed irritable bowel syndrome
CPT/HCPCS: 99214

== ENCOUNTER 2023-06-10 09:09 | Outpatient (AMB) | payer OTHER, SELFPAY ==
--- NOTE | 2023-06-10 09:10 | MHC.OFFVIS ---
Intake Vital Signs 06/10/23 09:12 Height 5 ft 3 in Weight 325 lb 6.436 oz BMI 57.6 BP 147/70 H Blood Pressure Location Rt brachial Position Sitting Pulse 76 Intake Visit Reasons: 3 week follow up paresis, GERD, N/V Intake Note: Patient presents to in office visit today in follow up of IBS. CC: Pt reports she had a little bit of diarrhea last night but overall she has been doing better with metoclopramide and lower dose of Trulicity. Denies having any new GI symptoms today. Fuse Spooler Required: No Accompanied by: Self / Same As Patient Allergies amlodipine Allergy (Unknown, Verified 06/28/23 08:53) swelling amoxicillin Allergy (Unknown, Verified 06/28/23 08:53) stomach upset lisinopril [LISINOPRIL] Allergy (Unknown, Verified 06/28/23 08:53) COUGH metformin Allergy (Unknown, Verified 06/28/23 08:53) Unknown metoprolol [METOPROLOL] Allergy (Unknown, Verified 06/28/23 08:53) SWELLING canagliflozin [Invokana] Adverse Reaction (Intermediate, Verified 06/28/23 08:53) yeast infection HPI 3 week follow up paresis, GERD, N/V HPI Details Assessment & Plan (1) Gastroparesis: Code(s): K31.84 - Gastroparesis Plan: She tells me that she stop her Trulicity this week and that has helped quite a bit with her nausea vomiting and burping that smells foul. This to is to be expected since Trulicity does slow down gastric emptying. We reviewed the gastric emptying study that does show a delay but I am uncertain if this is [place] to her diabetes or whether this is an affect from the Trulicity. She was on 1.5 mg once a week. She had discussed with her primary care potentially lowering the dose and since she can not get in to see him until September I will try prescribing this 0.75 mg dose. Hopefully, once we had the Reglan and titrated slowly she will be able to tolerate this medication that is very important to help her manage her diabetes. She tolerated the 5 mg Reglan 4 times a day very well without side effects. Because of her rather large body mass/BMI I think we can increase the dose to 10 mg 4 times a day. This may help her to titrate up the Trulicity to wear that needs to be. Apparently they are also trying to work on getting her age glucose blood monitor but insurance has been difficult. Return office visit in 3 weeks to see how she is tolerating the new medication combination. She has not yet heard about the endoscopy and I tell her that they have been waiting to hear back from her so she will try to call them to get this scheduled. 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 mellitus [facility] insulin use: with [facility] use Qualified Code(s): E11.65 - Type 2 diabetes mellitus with hyperglycemia; Z79.4 - longterm (current) use of insulin Medications: New metoclopramide HCl (Reglan) 10 mg PO QIDACHS 120 tabs 6RF K31.84 - Gastropar esis dulaglutide ([place]) 0.75 mg (0.5 mL) s ubcut QWEEK 2 mL 4 RF E11.65 - Type 2 di abetes mellitus wi th hyperglycemia On Hold dulaglutide ([place]) Hold Comm ent: Doctor's Ord er 1.5 mg (0.5 mL) armando bcut QWEEK 2 mL 5R F metoclopramide HCl (Reglan) Hold Comment: Doctor's Order 5 mg PO QIDACHS 1 20 tabs 6RF K31.84 - Gastropar esis EGD BIOPSY TODAY'S VISIT She is feeling much better on the higher dose of Reglan. She also restarted her Trulicity of the lower dose after her primary got involved (apparently there were insurance issues) and she is now tolerating that med much better. Her diabetes control has been good. She has some concerns out the side effects that she read on a printed she so we spent time discussing this in any alarm side effect she should report to me. The only question she had as she had an. Of mild lower leg cramps which has happened her in the past when her hydrochlorothiazide was to high. I reviewed her most recent labs that were just taken a few days ago and her BUN was up and her GI of our was decreased to 51 so I think the leg cramps are due to dehydration. She does admit she has not been drinking as much water so I encouraged her to do so since she does not have any CHF. For now holding off on the endoscopy since we seem to have solved the nausea and vomiting problem. Will re-evaluate this in 3 months and decide then if we want to completely cancel the procedure. Return office visit in 3 months. [facility] Medical History 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 right ear Carpal tunnel syndrome of left wrist Carpal tunnel syndrome of right wrist Type 2 diabetes mellitus with hyperglycemia Morbid obesity Vitamin D deficiency Subclinical hypothyroidism Diabetic polyneuropathy associated with type 2 diabetes mellitus Diabetic nephropathy associated with type 2 diabetes mellitus longterm (current) use of insulin Osteoarthritis of knees, bilateral Carpal tunnel syndrome Asthma Obstructive sleep apnea Obesity Hypertension Hypercholesterolemia Surgical History History of carpal tunnel release of both wrists Carpal tunnel syndrome of left wrist History of colonoscopy History of section Family History Father AAA (abdominal aortic aneurysm) Hypertension TIA (transient ischemic attack) Mother FH: thyroid condition Social History Household Members: Spouse and Children Housing: House Alcohol intake: never Patient Tobacco Use Status: Never used Tobacco e-Cigarette/Vaping Use: Never Used Second Hand Smoke Exposure: No service: No Current occupational status: employed 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 Cognitive needs: No Hearing needs: No Vision needs: No Review of Systems Const Denies fatigue, Denies fever(s), Denies night sweats, Denies poor appetite and Denies weight loss ENT Reports Normal hearing present, Denies dental pain, Denies dysphagia, Denies hearing loss, Denies mouth pain, Denies odynophagia, Denies throat swelling, Denies tongue swelling and Reports other (Dentition adequate) Card Reports no additional complaints Resp Reports no additional complaints GI Denies abdominal pain, Denies melena, Denies bloating, Denies hematochezia, Reports constipation, Denies GI cramping, Denies dysphagia, Denies excessive flatus, Denies early satiety, Reports heartburn, Denies diarrhea, Reports nausea, Denies odynophagia, Denies vomiting and Denies hematemesis Skin/Breast Denies pruritus, Denies lesions, Denies rash and Denies jaundice Neuro Reports Normal hearing present and Denies Abnormal speech present Endo Denies fatigue Aller/Immun Denies throat swelling and Denies tongue swelling Physical Exam Vital Signs: Last Vital Signs Pulse 76 06/10/23 09:12 BP 147/70 H 06/10/23 09:12 BMI result Body Mass Index 57.6 Const General: cooperative, no acute distress, well developed and well groomed Nutritional Appearance: well nourished and obese morbidly obese Orientation/consciousness: oriented to person, oriented to place and oriented to time Limitations: No language barrier and ambulation with cane HEENT Head: Yes normocephalic and Yes atraumatic Eyes General: appearance normal, both eyes and all related structures Pupils: Equal, round and reactive pupils present Neck Neck: Yes normal visual inspection and Yes no lymphadenopathy Thyroid: Thyroid normal Resp Effort & Inspection: normal respiratory effort and able to speak in complete sentences Auscultation: clear to auscultation bilaterally Cardio Rate: regular rate Rhythm: regular rhythm Heart sounds: Normal, physiologic split S2 sound present Peripheral pulses: radial pulses present and posterior tibial pulses present GI Inspection: No distended, Yes Abdominal panniculus present and Yes obesity Palpation (GI): Soft to palpation, nontender, no guarding, not rigid and No hepatosplenomegaly present Percussion: Yes normal to percussion Auscultation: normal bowel sounds Rectal Exam - Female: deferred Skin General skin exam: no rashes or lesions noted, turgor normal, skin not dry, no jaundice, No spider nevi and no striae Rashes: no rashes Nails: normal Neuro General: oriented to person, oriented to place and oriented to time Cranial nerves: Yes Equal, round and reactive pupils present and Yes Normal hearing present Speech: No Abnormal speech present Extrem General: Yes normal to inspection, No clubbing, No cyanosis and No edema Psych Appearance: grossly normal and well kempt Mental Status: mental status grossly normal Speech and movement: Normal speech and movement present Affect: normal affect Attitude: cooperative Thought process: Normal thought process present and not confabulating Thought content: Normal thought content present Insight: Limited insight present (Psych) Judgement: Limited judgement present (Psych) Assessment & Plan Assessment & Plan (1) Gastroparesis: Code(s): K31.84 - Gastroparesis Plan: She is feeling much better on the higher dose of Reglan. She also restarted her Trulicity of the lower dose after her primary got involved (apparently there were insurance issues) and she is now tolerating that med much better. Her diabetes control has been good. She has some concerns out the side effects that she read on a printed she so we spent time discussing this in any alarm side effect she should report to me. The only question she had as she had an. Of mild lower leg cramps which has happened her in the past when her hydrochlorothiazide was to high. I reviewed her most recent labs that were just taken a few days ago and her BUN was up and her GI of our was decreased to 51 so I think the leg cramps are due to dehydration. She does admit she has not been drinking as much water so I encouraged her to do so since she does not have any CHF. For now holding off on the endoscopy since we seem to have solved the nausea and vomiting problem. Will re-evaluate this in 3 months and decide then if we want to completely cancel the procedure. Return office visit in 3 months. (2) Irritable bowel syndrome with both constipation and diarrhea: Code(s): K58.2 - Mixed irritable bowel syndrome (3) Collagenous colitis: Code(s): K52.831 - Collagenous colitis Coding Level of Care Code Est Pt Level 3 (11083) Diagnoses Gastroparesis K31.84 Irritable bowel syndrome with both constipation and diarrhea K58.2 Collagenous colitis K52.831
[2023-06-10 09:12] VITALS: BP 147/70; PULSE 76; BMI 57.6
== END 2023-06-10 09:33 | disposition home or self-care (01) ==
PROVIDERS: PCP Internal Medicine; Visit Provider Nurse Practitioner
DX: K31.84 Gastroparesis (principal); K52.831 Collagenous colitis
CPT/HCPCS: 99213

== ENCOUNTER → 2023-06-10 09:09 | Outpatient (BNVA) | payer OTHER, SELFPAY | PROVIDERS: PCP Internal Medicine; Visit Provider Nurse Practitioner | DX: K31.84 Gastroparesis (principal); K58.2 Mixed irritable bowel syndrome; R11.2 Nausea with vomiting, unspecified; E11.65 Type 2 diabetes mellitus with hyperglycemia; E11.42 Type 2 diabetes mellitus with diabetic polyneuropathy; E11.21 Type 2 diabetes mellitus with diabetic nephropathy; Z79.4 Long term (current) use of insulin; Z79.85 Long-term (current) use of injectable non-insulin antidiabetic drugs | CPT/HCPCS: 99212 ==

== ENCOUNTER 2023-06-11 09:17 | Outpatient (AMB) | payer OTHER, SELFPAY ==
[2023-06-11 09:30] VITALS: BP 140/86; PULSE 80; RESP 17; O2SAT 97; BMI 58.3
--- NOTE | 2023-06-11 09:30 | MHC.PC.OV ---
Vital Signs 06/11/23 09:30 Height 5 ft 3 in Weight 329 lb 4 oz BMI 58.3 BP 140/86 H Blood Pressure Location Lt brachial Position Sitting Respiration 17 Pulse 80 Pulse Source Pulse Oximeter Pulse Oximetry (%) 97 Oxygen Delivery Method Room Air Intake Visit Reasons: DM Intake Note: Patient is here to follow up on DMII. Top Coater Required: No Accompanied by: Self / Same As Patient Allergies amlodipine Allergy (Unknown, Verified 06/11/23 09:33) swelling amoxicillin Allergy (Unknown, Verified 06/11/23 09:33) stomach upset lisinopril [LISINOPRIL] Allergy (Unknown, Verified 06/11/23 09:33) COUGH metformin Allergy (Unknown, Verified 06/11/23 09:33) Unknown metoprolol [METOPROLOL] Allergy (Unknown, Verified 06/11/23 09:33) SWELLING canagliflozin [Invokana] Adverse Reaction (Intermediate, Verified 06/11/23 09:33) yeast infection Medication List - Last Reconciled 06/11/23 by Blas Hernández MD albuterol sulfate 90 mcg/actuation (ProAir HFA) 2 puffs inhalation Q4-6H PRN atorvastatin 40 mg PO BEDTIME 90 days blood sugar diagnostic (FreeStyle Lite Strips) TEST 3 TIMES A DAY blood-glucose meter (FreeStyle Lite Meter kit) Tests 3X/day blood-glucose sensor ([employer] G7 Sensor device) As directed change every 10 days cholecalciferol (vitamin D3) 25 mcg PO DAILY clonidine HCl 0.1 mg PO BID cyanocobalamin (vitamin B-12) (Vitamin B-12) 1,000 mcg PO DAILY dicyclomine 20 mg PO TID dulaglutide (Trulicity) 0.75 mg (0.5 mL) subcut QWEEK famotidine (Pepcid) 40 mg PO BEDTIME hydrochlorothiazide 12.5 mg PO DAILY insulin regular hum U-500 conc (Humulin R U-500 (Conc) Insulin Kwikpen) 60 units (0.12 mL) subcut BID lancets As directed lancets (FreeStyle Lancets) Tests 3X/day losartan 25 mg PO DAILY metoclopramide HCl (Reglan) 10 mg PO QIDACHS pen needle, diabetic (BD Ultra-Fine Short Pen Needle) As directed twice a day psyllium husk (Metamucil) 1.2 grams PO BID sucralfate (Carafate) 1 g PO BID Tobacco use date assessed: 02/05/23 Dental Screening Dental Screen Date: 06/11/23 Did you have a dental visit in the last 12 months?: No Did you have a dental problem in the last 6 months where you did not have access to dental care?: No Was dental information given to patient?: Patient has dentist HPI DM HPI Details 58-year-old morbidly obese female with controlled diabetes mellitus hypertension hypercholesterolemia obstructive sleep apnea and irritable bowel syndrome. Noted April 2023 with right leg pain ultrasound done negative DVT noted complex Kovacs cyst. mammograms up-to-date. Patient has a diagnosis of IBS follows up with Gastroenterology. As for the diabetes patient has been started on Trulicity but did hold taking it due to nausea and vomiting dose was decreased ..75 PFSH Medical History 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 right ear Carpal tunnel syndrome of left wrist Carpal tunnel syndrome of right wrist Type 2 diabetes mellitus with hyperglycemia Morbid obesity Vitamin D deficiency Subclinical hypothyroidism Diabetic polyneuropathy associated with type 2 diabetes mellitus Diabetic nephropathy associated with type 2 diabetes mellitus group home (current) use of insulin Osteoarthritis of knees, bilateral Carpal tunnel syndrome Asthma Obstructive sleep apnea Obesity Hypertension Hypercholesterolemia Surgical History History of carpal tunnel release of both wrists Carpal tunnel syndrome of left wrist History of colonoscopy History of section Family History Father AAA (abdominal aortic aneurysm) Hypertension TIA (transient ischemic attack) Mother FH: thyroid condition Social History Household Members: Spouse and Children Housing: House Alcohol intake: never Patient Tobacco Use Status: Never used Tobacco e-Cigarette/Vaping Use: Never Used Second Hand Smoke Exposure: No service: No Current occupational status: employed 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 Francisco Javier Deleon, Cynthia Osborne, Abisai Devries and colleagues, with an educational sonali from [employer]. Physical exam (Primary Care) Vital Signs: Last Vital Signs Pulse 80 06/11/23 09:30 Resp 17 06/11/23 09:30 BP 140/86 H 06/11/23 09:30 Pulse Ox 97 06/11/23 09:30 Oxygen Delivery Method Room Air 06/11/23 09:30 BMI result Body Mass Index 58.3 Tobacco/Smoking Status: Tobacco use Status Tobacco use date assessed 02/05/23 06/11/23 09:36 Patient Tobacco Use Status Never used Tobacco 06/11/23 09:36 e-Cigarette/Vaping Use Never Used 06/11/23 09:36 Thrive Assessment: Date of Thrive Assessment Date Thrive assessed 02/05/23 06/11/23 09:36 Const General: alert; No acute distress Eyes Conjunctivae: conjunctivae normal Resp Auscultation: clear to auscultation bilaterally Cardio Rate: regular rate Rhythm: regular rhythm GI Inspection: Yes normal to inspection Extrem General: Yes normal to inspection and No edema Office Procedures Flu Questionnaire Does the patient have a severe egg allergy?: No Does the patient have severe life threatening allergies?: No Does the patient have a fever or illness today?: No Has the patient ever had Guillain-[place] Syndrome?: No Has the patient ever had any past reaction to a flu shot?: No Immunizations flu vacc [id number] 6mos up(PF) 60 mcg(15 mcgx4)/0.5 mL IM syringe Performing Provider: Bals Hernández MD [facility] Administered by: Elvie Mccrary CMA on 06/11/23 09:53 Dose Route Admin Location Dispensed Lot Number Expiration Date NDC Talk Show Host 0.5 mL IM Left Deltoid 0.5 mL [id number] 02/13/24 35943-409-42 Tymphany VIS Given Date VIS Provided VIS Publication Date 06/11/23 Single Vaccine 21 Eligibility Eligibility Date Funding Source Not VFC Eligible 06/11/23 Private Assessment and Plan Assessment & Plan (1) Type 2 diabetes mellitus with hyperglycemia: Comment: [employer] 2021 Code(s): E11.65 - Type 2 diabetes mellitus with hyperglycemia Qualifiers: 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 Patient presently on Trulicity lower the does due to nausea. Patient continues to be on insulin (2) Morbid obesity: Code(s): E66.01 - Morbid (severe) obesity due to excess calories Plan: Diet and exercise (3) Obstructive sleep apnea: Comment: CPAP use Code(s): G47.33 - Obstructive sleep apnea (adult) (pediatric) Plan: Continues to use the CPAP more than 4 hours a night and benefits from the (4) Hypertension: Code(s): I10 - Essential (primary) hypertension Qualifiers: Hypertension type: essential hypertension Qualified Code(s): I10 - Essential (primary) hypertension Plan: Continue with blood pressure medication. Decrease salt intake and exercise patient on losartan 25 mg once a day and hydrochlorothiazide 12.5 mg once a day Hydrochlorothiazide is advised to be taken off due to recurrent hypokalemia episode. Will increase the losartan dose to 50 mg once aday (5) Hypercholesterolemia: Code(s): E78.00 - Pure hypercholesterolemia, unspecified Plan: Avoid fried foods, chicken skin, eggs, butter margarine, pastries and meat. Be it pork or beef they have a lot of cholesterol LDL goal of less than 100 and triglyceride of less than 150 patient on atorvastatin 40 mg once a day (6) Irritable bowel syndrome with both constipation and diarrhea: Code(s): K58.2 - Mixed irritable bowel syndrome Plan: Patient follows up with Gastroenterology and has been placed on metoclopramide. Patient has been advised by Gastroenterology to discontinue Carafate (7) Gastroparesis: Code(s): K31.84 - Gastroparesis Plan: Metoclopramide treatment and on trulicity (8) Kovacs's cyst of knee: Comment: right 04/2023 Code(s): M71.20 - Synovial cyst of popliteal space [Kovacs], unspecified knee Plan: Reassurance and will see ORtho june 28, 2023 (9) Low back pain: Code(s): M54.50 - Low back pain, unspecified Plan: will monitor for the moment Orders: Orders Influenza [id number] Immunization Today Z23 - Encounter for immunization Medications: Changed From losartan 25 mg PO DAILY 90 tabs 3RF I10 - Essential (primary) hypertension To losartan 50 mg PO DAILY 30 tabs 3RF 30 days I10 - Essential (primary) hypertension Discontinued hydrochlorothiazide Discontinued Reason: Doctor's Order 12.5 mg PO DAILY 90 tabs 2RF I10 - Essential (primary) hypertension sucralfate (Carafate) Discontinued Reason: Doctor's Order 1 g PO BID 60 tabs 6RF K58.2 - Mixed irritable bowel syndrome dulaglutide (Trulicity) Discontinued Reason: Doctor's Order 1.5 mg (0.5 mL) subcut QWEEK 2 mL 5RF metoclopramide HCl (Reglan) Discontinued Reason: Doctor's Order 5 mg PO QIDACHS 120 tabs 6RF K31.84 - Gastroparesis Coding Level of Care Code Est Pt Level 4 (03007) Diagnoses Type 2 diabetes mellitus with hyperglycemia, with long-term current use of insulin E11.65; Z79.4 Diabetes mellitus mcfp insulin use: with mcfp use Morbid obesity E66.01 Obstructive sleep apnea G47.33 Essential hypertension I10 Hypertension type: essential hypertension Hypercholesterolemia E78.00 Irritable bowel syndrome with both constipation and diarrhea K58.2 Gastroparesis K31.84 Kovacs's cyst of knee M71.20 Low back pain M54.50
== END 2023-06-11 09:59 | disposition home or self-care (01) ==
PROVIDERS: PCP Internal Medicine; Visit Provider Internal Medicine
DX: E11.65 Type 2 diabetes mellitus with hyperglycemia (principal); Z79.4 Long term (current) use of insulin; E66.01 Morbid (severe) obesity due to excess calories; Z68.43 Body mass index [BMI] 50.0-59.9, adult; G47.33 Obstructive sleep apnea (adult) (pediatric); I10 Essential (primary) hypertension; Z23 Encounter for immunization; E78.00 Pure hypercholesterolemia, unspecified; K58.2 Mixed irritable bowel syndrome; K31.84 Gastroparesis; M71.20 Synovial cyst of popliteal space [Baker], unspecified knee; M54.50 Low back pain, unspecified
CPT/HCPCS: 90471; 90686; 99214

== ENCOUNTER 2023-06-14 11:35 | Outpatient (REF) | payer OTHER, SELFPAY ==
[2023-06-14 13:14] LABS: Appearance Urine Clear; Color Urine Dark Yellow; Glucose Urine UA Negative (Negative); Leukocyte Esterase Urine Negative (Negative); Nitrite Urine Negative (Negative); Urine Blood Negative (Negative); Urine Ketones Negative (Negative); Urine Protein Negative (Neg-Trace)
[2023-06-14 13:44] LABS: Creatinine Urine 180.86 mg/dL
== END 2023-06-14 11:36 | disposition home or self-care (01) ==
LOC: HO.HMGCLDS 11:35
PROVIDERS: PCP Internal Medicine; Visit Provider Internal Medicine
DX: E11.65 Type 2 diabetes mellitus with hyperglycemia (principal); R39.9 Unspecified symptoms and signs involving the genitourinary system; Z79.4 Long term (current) use of insulin
CPT/HCPCS: 81003; 82570

== ENCOUNTER 2023-06-28 08:30 | Outpatient (AMB) | payer OTHER, SELFPAY ==
--- NOTE | 2023-06-28 08:43 | A.OFFVIS_ITS ---
Intake Vital Signs 06/28/23 08:48 Height 5 ft 3 in Weight 329 lb BMI 58.3 Intake Visit Reasons: New Prob- Right knee Synovial cyst Intake Note: Amy rico 58 year old female presents today for an evaluation of right knee. Patient reports having bilateral knee arthritis with a history of cortisone injections. States the past couple of months she has been having an increase of pain at the posterior aspect of knee. She describes her pain as a painful cramp. She was seen by her PCP who ordered xrays and was told having a bakers cyst. Allergies amlodipine Allergy (Unknown, Verified 06/28/23 08:53) swelling amoxicillin Allergy (Unknown, Verified 06/28/23 08:53) stomach upset lisinopril [LISINOPRIL] Allergy (Unknown, Verified 06/28/23 08:53) COUGH metformin Allergy (Unknown, Verified 06/28/23 08:53) Unknown metoprolol [METOPROLOL] Allergy (Unknown, Verified 06/28/23 08:53) SWELLING canagliflozin [Invokana] Adverse Reaction (Intermediate, Verified 06/28/23 08:53) yeast infection HPI New Prob- Right knee Synovial cyst HPI Details 58-year-old female who presents to the o ice today for evaluation of right knee. She states she has worsening pain in the posterior aspect of her right knee and describes the pain as a ?painful cramp.? She also c/o experiencing popping of her knee. She was seen by her PCP who ordered x-rays of her right knee. She has a history of bilateral knee arthritis and had cortisone injections in the past. She has a history of diabetes. Her sugar level is 92 today. [facility] Medical History 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 right ear Carpal tunnel syndrome of left wrist Carpal tunnel syndrome of right wrist Type 2 diabetes mellitus with hyperglycemia Morbid obesity Vitamin D deficiency Subclinical hypothyroidism Diabetic polyneuropathy associated with type 2 diabetes mellitus Diabetic nephropathy associated with type 2 diabetes mellitus detention (current) use of insulin Osteoarthritis of knees, bilateral Carpal tunnel syndrome Asthma Obstructive sleep apnea Obesity Hypertension Hypercholesterolemia Surgical History History of carpal tunnel release of both wrists Carpal tunnel syndrome of left wrist History of colonoscopy History of section Family History Father AAA (abdominal aortic aneurysm) Hypertension TIA (transient ischemic attack) Mother FH: thyroid condition Social History Household Members: Spouse and Children Housing: House Alcohol intake: never Patient Tobacco Use Status: Never used Tobacco e-Cigarette/Vaping Use: Never Used Second Hand Smoke Exposure: No service: No Current occupational status: employed 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 Tenderness along the medial and lateral joint line. Full ROM with crepitus. Negative Magno?s. No ligamentous laxity. NVI. Office Procedures Joint Injection/Drain Joint Injection/Drain Primary Site: right knee Prep: site was prepped using aseptic technique, ethochloride spray was applied and injection warnings given Injected: 40 mg of, DepoMedrol, with 8 mL of, 1% plain lidocaine and in the joint Approach Used: anterolateral Procedure: The patient tolerated the procedure well and there was some relief with the local anesthesia Coding 08190 - Glenohumeral/Tronchanteric Bursa/Intraarticular Procedure code (CPT) selection complete Results Reviewed Results Reviewed: 06/28/23 09:18 Lidocaine HCl 2 % MPF [Xylocaine 2 % MPF] 5 ml .ROUTE .STK-MED ONE methylPREDNISolone acetate [DEPO-MedroL] 40 mg .ROUTE .STK-MED ONE Xrays were obtained in the office today and personally reviewed by me of the right knee show severe tricompartmental oa Assessment & Plan Assessment & Plan (1) Osteoarthritis of right knee: Code(s): M17.11 - Unilateral primary osteoarthritis, right knee Qualifiers: Osteoarthritis type: primary Qualified Code(s): M17.11 - Unilateral primary osteoarthritis, right knee Plan We discussed options today which include steroid injection. They did consent to move forward with the right knee injection, which was tolerated well. I recommended rest, ice and elevation and OTC anti-inflammatories PRN for discomfort. We also discussed their diabetes and the effect the steroid can have on their blood glucose levels; therefore, they will continue to monitor these very closely over the next 72 hours. If there are any concerns, they should re port to the ED immediately. Orders: Orders XR knee RT 2V Today M25.569 - Pain in unspecified knee XR knee standing BI Today M25.561 - Pain in right knee, M25.562 - Pain in left knee Patient Instructions: Scribed for Vicki Yung PA-C, by Gordon Laurent medical doctor md/medical director, on 06/28/2023 at 8:30 AM EST. Ahmet, Vicki Yung PA-C, have personally reviewed and agree with the information entered by the scribe. Coding Level of Care Code Est Pt Level 3 (01251) Diagnoses Primary osteoarthritis of right knee M17.11 Osteoarthritis type: primary CPT Codes Coding - Joint 7: 60097 - Glenohumeral/Tronchanteric Bursa/Intraarticular ([id number])
[2023-06-28 08:48] VITALS: BMI 58.3
== END 2023-06-28 10:42 | disposition home or self-care (01) ==
PROVIDERS: PCP Internal Medicine; Visit Provider Physician Assistant
DX: M17.11 Unilateral primary osteoarthritis, right knee (principal)
CPT/HCPCS: 20610; 99213

== ENCOUNTER 2023-06-28 08:33 | Outpatient (REF) | payer OTHER, SELFPAY ==
--- NOTE | ~2023-06-28 | XR_ITS ---
EXAMINATION: XR KNEE, RIGHT XR KNEE AP STANDING CLINICAL INFORMATION: Pain. COMPARISON: Radiographs dated 04/04/2020. TECHNIQUE: Lateral and axial views of the right knee were obtained. AP bilateral standing view of the knees was obtained. FINDINGS: There is marked asymmetric narrowing of the medial joint space compartment of the right knee. The lateral joint space compartment is well-maintained and shows very mild peripheral osteophyte formation. There is a moderately severe varus configuration. There is marked narrowing of the right patellofemoral compartment laterally. There are small enthesophytes arising from the upper pole of the right patella at the quadriceps tendon insertion. No right knee fracture, dislocation or significant joint effusion is seen. There is no foreign body. There is marked asymmetric narrowing of the medial joint space compartment of the left knee, and the lateral joint space compartment is well-maintained. There is a secondary moderately severe varus configuration. XR/XR knee standing BI IMPRESSION: 1. There is tricompartment osteoarthritic change of the right knee, most pronounced of the medial and patellofemoral joint space compartments, where it is marked. 2. There is marked osteoarthritic change of the medial joint space compartment of the left knee. 3. There are moderately severe varus configurations of the bilateral knees.
--- NOTE | ~2023-06-28 | XR_ITS ---
EXAMINATION: XR KNEE, RIGHT XR KNEE AP STANDING CLINICAL INFORMATION: Pain. COMPARISON: Radiographs dated 04/04/2020. TECHNIQUE: Lateral and axial views of the right knee were obtained. AP bilateral standing view of the knees was obtained. FINDINGS: There is marked asymmetric narrowing of the medial joint space compartment of the right knee. The lateral joint space compartment is well-maintained and shows very mild peripheral osteophyte formation. There is a moderately severe varus configuration. There is marked narrowing of the right patellofemoral compartment laterally. There are small enthesophytes arising from the upper pole of the right patella at the quadriceps tendon insertion. No right knee fracture, dislocation or significant joint effusion is seen. There is no foreign body. There is marked asymmetric narrowing of the medial joint space compartment of the left knee, and the lateral joint space compartment is well-maintained. There is a secondary moderately severe varus configuration. XR/XR knee RT 2V IMPRESSION: 1. There is tricompartment osteoarthritic change of the right knee, most pronounced of the medial and patellofemoral joint space compartments, where it is marked. 2. There is marked osteoarthritic change of the medial joint space compartment of the left knee. 3. There are moderately severe varus configurations of the bilateral knees.
== END 2023-06-28 08:34 | disposition home or self-care (01) ==
LOC: HO.HOSX 08:33
PROVIDERS: Visit Provider Physician Assistant
DX: M17.11 Unilateral primary osteoarthritis, right knee (principal); M25.562 Pain in left knee
CPT/HCPCS: 20610; 73560; 73565; 99212; J1020

== ENCOUNTER 2023-08-23 09:38 | Outpatient (AMB) | payer OTHER, SELFPAY ==
--- NOTE | 2023-08-23 09:46 | MHC.OFFVIS ---
Intake Vital Signs 08/23/23 09:52 Height 5 ft 3 in Weight 329 lb BMI 58.3 Intake Visit Reasons: ov- bilateral knee Euflexxa #1 Intake Note: Amy rico 58 year old female presents today for bilateral knee Euflexxa injection #1. Allergies amlodipine Allergy (Unknown, Verified 08/23/23 09:52) swelling amoxicillin Allergy (Unknown, Verified 08/23/23 09:52) stomach upset lisinopril [LISINOPRIL] Allergy (Unknown, Verified 08/23/23 09:52) COUGH metformin Allergy (Unknown, Verified 08/23/23 09:52) Unknown metoprolol [METOPROLOL] Allergy (Unknown, Verified 08/23/23 09:52) SWELLING canagliflozin [Invokana] Adverse Reaction (Intermediate, Verified 08/23/23 09:52) yeast infection HPI ov- bilateral knee Euflexxa #1 HPI Details 58-year-old female who returns to the office today for bilateral knee Euflexxa gel injection #1. PFSH Medical History 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 right ear Carpal tunnel syndrome of left wrist Carpal tunnel syndrome of right wrist Type 2 diabetes mellitus with hyperglycemia Morbid obesity Vitamin D deficiency Subclinical hypothyroidism Diabetic polyneuropathy associated with type 2 diabetes mellitus Diabetic nephropathy associated with type 2 diabetes mellitus penitentiary (current) use of insulin Osteoarthritis of knees, bilateral Carpal tunnel syndrome Asthma Obstructive sleep apnea Obesity Hypertension Hypercholesterolemia Surgical History History of carpal tunnel release of both wrists Carpal tunnel syndrome of left wrist History of colonoscopy History of section Family History Father AAA (abdominal aortic aneurysm) Hypertension TIA (transient ischemic attack) Mother FH: thyroid condition Social History Household Members: Spouse and Children Housing: House Alcohol intake: never Patient Tobacco Use Status: Never used Tobacco e-Cigarette/Vaping Use: Never Used Second Hand Smoke Exposure: No service: No Current occupational status: employed 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 No erythema or joint effusion. Full ROM with crepitus. Calf supple non tender. Office Procedures Joint Injection/Drain Joint Injection/Drain Details: Euflexxa bilt knee Primary Site: right knee Secondary Site: left knee Prep: site was prepped using aseptic technique, ethochloride spray was applied and injection warnings given Injected: in the joint Approach Used: anterolateral Procedure: The patient tolerated the procedure well Coding 38525 - Glenohumeral/Tronchanteric Bursa/Intraarticular Procedure code (CPT) selection complete Assessment & Plan Assessment & Plan (1) Patellofemoral arthralgia of both knees: Code(s): M22.2X1 - Patellofemoral disorders, right knee; M22.2X2 - Patellofemoral disorders, left knee Plan We discussed options today which include Euflexxa gel injection. They did consent to move forward with the bilateral knee Euflexxa gel injection #1, which was tolerated well. I recommended rest, ice and elevation and OTC anti-inflammatories PRN for discomfort. If symptoms persist or worsens over the next 6-8 weeks, patient will contact the office, otherwise he will return in 1 week for Euflexxa gel injection #2. Patient Instructions: Scribed for Vicki Yung PA-C, by Gordon Laurent auditor medical claims, on 08/23/2023 at 9:45 AM EST. I, Vicki Yung PA-C, have personally reviewed and agree with the information entered by the scribe. Coding Level of Care Code Procedure Only Diagnoses Patellofemoral arthralgia of both knees M22.2X1; M22.2X2 CPT Codes Coding - Joint 7: 44412 - Glenohumeral/Tronchanteric Bursa/Intraarticular ([id number])
[2023-08-23 09:52] VITALS: BMI 58.3
== END 2023-08-23 10:16 | disposition home or self-care (01) ==
PROVIDERS: PCP Internal Medicine; Visit Provider Physician Assistant
DX: M22.2X1 Patellofemoral disorders, right knee (principal); M22.2X2 Patellofemoral disorders, left knee
CPT/HCPCS: 20610

== ENCOUNTER → 2023-08-23 09:38 | Outpatient (BNVA) | payer OTHER, SELFPAY | PROVIDERS: PCP Internal Medicine; Visit Provider Physician Assistant | DX: M22.2X1 Patellofemoral disorders, right knee (principal); M22.2X2 Patellofemoral disorders, left knee | CPT/HCPCS: 20610; J7323 ==

== ENCOUNTER 2023-08-26 09:07 | Outpatient (AMB) | payer OTHER, SELFPAY ==
[2023-08-26 09:12] VITALS: BP 150/85; PULSE 84; BMI 58.6
--- NOTE | 2023-08-26 09:12 | MHC.OFFVIS ---
Intake Vital Signs 08/26/23 09:12 Height 5 ft 3 in Weight 330 lb 11.094 oz BMI 58.6 BP 150/85 H Blood Pressure Location Rt radial Position Sitting Pulse 84 Intake Visit Reasons: 3 month follow up Intake Note: Patient presents to in office visit today in follow 3 months follow up of IBS. CC: Per patient she was doing pretty good but she started gel injections on her knees on Wednesday and after that she has been having diarrhea and lose stools. States also a little bit of nausea d/t the diarrhea. Denies having other GI concerns today. Manager Garden Required: No Accompanied by: Self / Same As Patient Allergies amlodipine Allergy (Unknown, Verified 08/26/23 09:19) swelling amoxicillin Allergy (Unknown, Verified 08/26/23 09:19) stomach upset lisinopril [LISINOPRIL] Allergy (Unknown, Verified 08/26/23 09:19) COUGH metformin Allergy (Unknown, Verified 08/26/23 09:19) Unknown metoprolol [METOPROLOL] Allergy (Unknown, Verified 08/26/23 09:19) SWELLING canagliflozin [Invokana] Adverse Reaction (Intermediate, Verified 08/26/23 09:19) yeast infection HPI 3 month follow up HPI Details Assessment & Plan (1) Gastroparesis: Code(s): K31.84 - Gastroparesis Plan: She is feeling much better on the higher dose of Reglan. She also restarted her Trulicity of the lower dose after her primary got involved (apparently there were insurance issues) and she is now tolerating that med much better. Her diabetes control has been good. She has some concerns out the side effects that she read on a printed she so we spent time discussing this in any alarm side effect she should report to me. The only question she had as she had an. Of mild lower leg cramps which has happened her in the past when her hydrochlorothiazide was to high. I reviewed her most recent labs that were just taken a few days ago and her BUN was up and her GI of our was decreased to 51 so I think the leg cramps are due to dehydration. She does admit she has not been drinking as much water so I encouraged her to do so since she does not have any CHF. For now holding off on the endoscopy since we seem to have solved the nausea and vomiting problem. Will re-evaluate this in 3 months and decide then if we want to completely cancel the procedure. Return office visit in 3 months. (2) Irritable bowel syndrome with both constipation and diarrhea: Code(s): K58.2 - Mixed irritable bowel syndrome (3) Collagenous colitis: Code(s): K52.831 - Collagenous colitis TODAY'S VISIT She tells me that she is receiving Euflexxa injections in her knee and for the past week she has had some diarrhea. She is uncertain if this is a side effect to this procedure or if there is something else going on. It has only been slight diarrhea and for couple of days over the past week. She continues to do well on her metoclopramide except she does have some increased dyspepsia again were uncertain why at this time. She continues on her famotidine and metamucil with good control of these associated conditions. At this point I think the best thing to do was to watch and wait and see if this resolves itself or see if it seems to be an ongoing issue. Return office visit in 2-3 weeks [facility] Medical History 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 right ear Carpal tunnel syndrome of left wrist Carpal tunnel syndrome of right wrist Type 2 diabetes mellitus with hyperglycemia Morbid obesity Vitamin D deficiency Subclinical hypothyroidism Diabetic polyneuropathy associated with type 2 diabetes mellitus Diabetic nephropathy associated with type 2 diabetes mellitus senior living (current) use of insulin Osteoarthritis of knees, bilateral Carpal tunnel syndrome Asthma Obstructive sleep apnea Obesity Hypertension Hypercholesterolemia Surgical History History of carpal tunnel release of both wrists Carpal tunnel syndrome of left wrist History of colonoscopy History of section Family History Father AAA (abdominal aortic aneurysm) Hypertension TIA (transient ischemic attack) Mother FH: thyroid condition Social History Household Members: Spouse and Children Housing: House Alcohol intake: never Patient Tobacco Use Status: Never used Tobacco e-Cigarette/Vaping Use: Never Used Second Hand Smoke Exposure: No service: No Current occupational status: employed 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 Cognitive needs: No Hearing needs: No Vision needs: No Review of Systems Const Denies fatigue, Denies fever(s), Denies night sweats, Denies poor appetite and Denies weight loss ENT Reports Normal hearing present, Denies dental pain, Denies dysphagia, Denies hearing loss, Denies mouth pain, Denies odynophagia, Denies throat swelling, Denies tongue swelling and Reports other (Dentition adequate) Card Reports no additional complaints Resp Reports no additional complaints GI Denies abdominal pain, Denies melena, Denies bloating, Denies hematochezia, Denies constipation, Denies GI cramping, Denies dysphagia, Denies excessive flatus, Reports early satiety, Reports heartburn, Reports diarrhea, Denies nausea, Denies odynophagia, Denies vomiting and Denies hematemesis Skin/Breast Denies pruritus, Denies lesions, Denies rash and Denies jaundice Neuro Reports Normal hearing present and Denies Abnormal speech present Endo Denies fatigue Aller/Immun Denies throat swelling and Denies tongue swelling Physical Exam Vital Signs: Last Vital Signs Pulse 84 08/26/23 09:12 BP 150/85 H 08/26/23 09:12 BMI result Body Mass Index 58.6 Const General: cooperative, no acute distress, well developed and well groomed Nutritional Appearance: well nourished and obese Orientation/consciousness: oriented to person, oriented to place and oriented to time Limitations: No language barrier and ambulation with cane HEENT Head: Yes normocephalic and Yes atraumatic Eyes General: appearance normal, both eyes and all related structures Pupils: Equal, round and reactive pupils present Neck Neck: Yes normal visual inspection and Yes no lymphadenopathy Thyroid: Thyroid normal Resp Effort & Inspection: normal respiratory effort and able to speak in complete sentences Auscultation: clear to auscultation bilaterally Cardio Rate: regular rate Rhythm: regular rhythm Heart sounds: Normal, physiologic split S2 sound present Peripheral pulses: radial pulses present and posterior tibial pulses present GI Inspection: No distended, Yes Abdominal panniculus present and Yes obesity Palpation (GI): Soft to palpation, nontender, no guarding, not rigid and No hepatosplenomegaly present Percussion: Yes normal to percussion Auscultation: normal bowel sounds Rectal Exam - Female: deferred Skin General skin exam: no rashes or lesions noted, turgor normal, skin not dry, no jaundice, No spider nevi and no striae Rashes: no rashes Nails: normal Neuro General: oriented to person, oriented to place and oriented to time Cranial nerves: Yes Equal, round and reactive pupils present and Yes Normal hearing present Speech: No Abnormal speech present Extrem General: Yes normal to inspection, No clubbing, No cyanosis and No edema Psych Appearance: grossly normal and well kempt Mental Status: mental status grossly normal Speech and movement: Normal speech and movement present Affect: normal affect Attitude: cooperative Thought process: Normal thought process present and not confabulating Thought content: Normal thought content present Insight: Limited insight present (Psych) Judgement: Limited judgement present (Psych) Assessment & Plan Assessment & Plan (1) Gastroparesis: Code(s): K31.84 - Gastroparesis (2) Irritable bowel syndrome with both constipation and diarrhea: Code(s): K58.2 - Mixed irritable bowel syndrome (3) Collagenous colitis: Code(s): K52.831 - Collagenous colitis Plan She tells me that she is receiving Euflexxa injections in her knee and for the past week she has had some diarrhea. She is uncertain if this is a side effect to this procedure or if there is something else going on. It has only been slight diarrhea and for couple of days over the past week. She continues to do well on her metoclopramide except she does have some increased dyspepsia again were uncertain why at this time. She continues on her famotidine and metamucil with good control of these associated conditions. At this point I think the best thing to do was to watch and wait and see if this resolves itself or see if it seems to be an ongoing issue. Return office visit in 2-3 weeks Coding Level of Care Code Est Pt Level 3 (95133) Diagnoses Gastroparesis K31.84 Irritable bowel syndrome with both constipation and diarrhea K58.2 Collagenous colitis K52.831
== END 2023-08-26 09:32 | disposition home or self-care (01) ==
PROVIDERS: PCP Internal Medicine; Visit Provider Nurse Practitioner
DX: K31.84 Gastroparesis (principal); K52.831 Collagenous colitis
CPT/HCPCS: 99213

== ENCOUNTER → 2023-08-26 09:07 | Outpatient (BNVA) | payer OTHER, SELFPAY | PROVIDERS: PCP Internal Medicine; Visit Provider Nurse Practitioner | DX: K31.84 Gastroparesis (principal); K58.2 Mixed irritable bowel syndrome; K52.831 Collagenous colitis | CPT/HCPCS: 99212 ==

== ENCOUNTER 2023-08-30 08:44 | Outpatient (AMB) | payer OTHER, SELFPAY ==
--- NOTE | 2023-08-30 08:46 | A.OFFVIS_ITS ---
Intake Intake Visit Reasons: ov- bilateral knee Euflexxa injection #2 Intake Note: Amy rico 58 year old female presents today for bilateral knee Euflexxa injection #2. Allergies amlodipine Allergy (Unknown, Verified 08/30/23 08:54) swelling amoxicillin Allergy (Unknown, Verified 08/30/23 08:54) stomach upset lisinopril [LISINOPRIL] Allergy (Unknown, Verified 08/30/23 08:54) COUGH metformin Allergy (Unknown, Verified 08/30/23 08:54) Unknown metoprolol [METOPROLOL] Allergy (Unknown, Verified 08/30/23 08:54) SWELLING canagliflozin [Invokana] Adverse Reaction (Intermediate, Verified 08/30/23 08:54) yeast infection HPI ov- bilateral knee Euflexxa injection #2 HPI Details 58-year-old female [facility] Euflexxa gel injection #2. 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 Osteoarthritis of knees, bilateral Carpal tunnel syndrome Asthma Obstructive sleep apnea Obesity Hypertension Hypercholesterolemia Surgical History History of carpal tunnel release of both wrists Carpal tunnel syndrome of left wrist History of colonoscopy History of section Family History Father AAA (abdominal aortic aneurysm) Hypertension TIA (transient ischemic attack) Mother FH: thyroid condition Social History Household Members: Spouse and Children Housing: House Alcohol intake: never Patient Tobacco Use Status: Never used Tobacco e-Cigarette/Vaping Use: Never Used Second Hand Smoke Exposure: No service: No Current occupational status: employed 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 No erythema or joint effusion. Full ROM with crepitus. Calf supple non tender. Office Procedures Joint Injection/Drain Joint Injection/Drain Details: bilat knee euflexxa Primary Site: right knee Secondary Site: left knee Prep: site was prepped using aseptic technique, ethochloride spray was applied and injection warnings given Injected: in the joint Approach Used: anterolateral Procedure: The patient tolerated the procedure well Coding 65321 - Glenohumeral/Tronchanteric Bursa/Intraarticular Procedure code (CPT) selection complete Assessment & Plan Assessment & Plan (1) Patellofemoral arthralgia of both knees: Code(s): M22.2X1 - Patellofemoral disorders, right knee; M22.2X2 - Patellofemoral disorders, left knee Plan We discussed options today which include Euflexxa gel injection. They did consent to move forward with the bilateral knee Euflexxa gel injection #2, which was tolerated well. I recommended rest, ice and elevation and OTC anti- inflammatories PRN for discomfort. she will return next week for Euflexxa gel injection #3. Patient Instructions: Scribed for Vicki Yung PA-C, by Gordon Laurent certified medical aide, on 08/30/2023 at 9:00 AM EST. I, Vicki Yung PA-C, have personally reviewed and agree with the information entered by the scribe. Coding Level of Care Code Procedure Only Diagnoses Patellofemoral arthralgia of both knees M22.2X1; M22.2X2 CPT Codes Coding - Joint 7: 53600 - Glenohumeral/Tronchanteric Bursa/Intraarticular ([id number])
== END 2023-08-30 09:08 | disposition home or self-care (01) ==
PROVIDERS: PCP Internal Medicine; Visit Provider Physician Assistant
DX: M22.2X1 Patellofemoral disorders, right knee (principal); M22.2X2 Patellofemoral disorders, left knee
CPT/HCPCS: 20610

== ENCOUNTER → 2023-08-30 08:44 | Outpatient (BNVA) | payer OTHER, SELFPAY | PROVIDERS: PCP Internal Medicine; Visit Provider Physician Assistant | DX: M22.2X1 Patellofemoral disorders, right knee (principal); M22.2X2 Patellofemoral disorders, left knee | CPT/HCPCS: 20610; J7323 ==

== ENCOUNTER 2023-09-06 08:48 | Outpatient (AMB) | payer OTHER, SELFPAY ==
[2023-09-06 08:53] VITALS: BMI 58.5
--- NOTE | 2023-09-06 08:53 | A.OFFVIS_ITS ---
Intake Vital Signs 09/06/23 08:53 Height 5 ft 3 in Weight 330 lb BMI 58.5 Intake Visit Reasons: ov- bilateral knee Euflexxa injection #3 Intake Note: Amy rico 58 year old female presents today for bilateral knee Euflexxa injection #3. Allergies amlodipine Allergy (Unknown, Verified 09/06/23 08:53) swelling amoxicillin Allergy (Unknown, Verified 09/06/23 08:53) stomach upset lisinopril [LISINOPRIL] Allergy (Unknown, Verified 09/06/23 08:53) COUGH metformin Allergy (Unknown, Verified 09/06/23 08:53) Unknown metoprolol [METOPROLOL] Allergy (Unknown, Verified 09/06/23 08:53) SWELLING canagliflozin [Invokana] Adverse Reaction (Intermediate, Verified 09/06/23 08:53) yeast infection HPI ov- bilateral knee Euflexxa injection #3 HPI Details 58-year-old female who returns to the [facility] today for bilateral knee Euflexxa gel injection #3. 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 Osteoarthritis of knees, bilateral Carpal tunnel syndrome Asthma Obstructive sleep apnea Obesity Hypertension Hypercholesterolemia Surgical History History of carpal tunnel release of both wrists Carpal tunnel syndrome of left wrist History of colonoscopy History of section Family History Father AAA (abdominal aortic aneurysm) Hypertension TIA (transient ischemic attack) Mother FH: thyroid condition Social History Household Members: Spouse and Children Housing: House Alcohol intake: never Patient Tobacco Use Status: Never used Tobacco e-Cigarette/Vaping Use: Never Used Second Hand Smoke Exposure: No service: No Current occupational status: employed 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 No erythema or joint effusion. Full ROM with crepitus. Calf supple non tender. Office Procedures Joint Injection/Drain Joint Injection/Drain Details: bilat knee euflexxa Primary Site: right knee Secondary Site: left knee Prep: site was prepped using aseptic technique, ethochloride spray was applied and injection warnings given Injected: in the joint Approach Used: anterolateral Procedure: The patient tolerated the procedure well Coding 10541 - Glenohumeral/Tronchanteric Bursa/Intraarticular Procedure code (CPT) selection complete Assessment & Plan Assessment & Plan (1) Patellofemoral arthralgia of both knees: Code(s): M22.2X1 - Patellofemoral disorders, right knee; M22.2X2 - Patellofemoral disorders, left knee Plan We discussed options today which include Euflexxa gel injection. They did consent to move forward with the bilateral knee Euflexxa gel injection #3, which was tolerated well. I recommended rest, ice and elevation and OTC anti- inflammatories PRN for discomfort. If symptoms persist or worsens over the next 6-8 weeks, patient will contact the office, otherwise follow-up as needed. Patient Instructions: Scribed for Vicki Yung PA-C, by Gordon Laurent medical research scientist, on 09/06/2023 at 9:00 AM EST. IVicki PA-C, have personally reviewed and agree with the information entered by the scribe. Coding Level of Care Code Procedure Only Diagnoses Patellofemoral arthralgia of both knees M22.2X1; M22.2X2 CPT Codes Coding - Joint 7: 63381 - Glenohumeral/Tronchanteric Bursa/Intraarticular ([id number])
== END 2023-09-06 09:45 | disposition home or self-care (01) ==
PROVIDERS: PCP Internal Medicine; Visit Provider Physician Assistant
DX: M22.2X1 Patellofemoral disorders, right knee (principal); M22.2X2 Patellofemoral disorders, left knee
CPT/HCPCS: 20610

== ENCOUNTER → 2023-09-06 08:48 | Outpatient (BNVA) | payer OTHER, SELFPAY | PROVIDERS: PCP Internal Medicine; Visit Provider Physician Assistant | DX: M22.2X1 Patellofemoral disorders, right knee (principal); M22.2X2 Patellofemoral disorders, left knee | CPT/HCPCS: 20610; J7323 ==

== ENCOUNTER 2023-09-17 22:40 | Emergency (ER) | payer OTHER, SELFPAY ==
[2023-09-17 23:16] VITALS: BMI 52.4
--- NOTE | 2023-09-17 23:26 | PC.NURSE ---
Referral made to [facility]. Case declined at this time. Ref # [id number]
--- NOTE | 2023-09-17 23:35 | ED_ITS ---
HPI - CPR General Chief Complaint: Cardiac Arrest/CPR Stated Complaint: cc diff breathing, ACLS in progress, vomit Time Seen by Provider: 09/17/23 23:02 Source: family, EMS and old records reviewed Mode of arrival: EMS Limitations: other (CPR) History of Present Illness HPI narrative: 58 yo female with PMH of DM, obesity, asthma, ZACHARY, HTN, HLD, just recovered from COVID 2 weeks ago here with c/o shortness of breath then collapsed about 35 minutes prior to ED arrival asystole on arrival and with EMS - pupils unequal and concern for hypoxia on arrival given cyanosis and difficult airway. Epi given. Family states she did recover from COVId. MD complaint: collapsed during rest Onset (ago): minute(s) (40) Timing confirmed by: family member Place: home Bystander CPR performed: Yes AED applied by bystander/laborer/key man: Yes Shock advised: No Initial findings in the field: unresponsive, no pulse and other rhythm (asystole) ROSC in the field: No Associated injuries: No Associated symptoms: shortness of breath Treatments prior to arrival: BMV and epinephrine mgs # (3) Related Data Home Medications Medication Instructions Recorded Confirmed albuterol sulfate 90 mcg/actuation 2 puff inhalation Q4-6H PRN 06/07/20 06/11/23 aerosol inhaler (ProAir HFA) cholecalciferol (vitamin D3) 25 25 mcg PO DAILY 06/07/20 06/11/23 mcg (1,000 unit) capsule psyllium husk 0.4 gram capsule 1.2 g PO BID 06/07/20 06/11/23 (Metamucil) lancets 25 gauge #100 ea 07/19/20 06/11/23 Previous Rx's Medication Instructions Recorded blood-glucose meter (FreeStyle #1 ea 01/09/22 Lite Meter kit) lancets 28 gauge (FreeStyle #100 ea 01/09/22 Lancets) pen needle, diabetic 31 gauge x #200 ea 08/19/2212/29 (BD Ultra-Fine Short Pen Needle) dicyclomine 20 mg tablet 20 mg PO TID #270 tabs 12/29/22 blood-glucose sensor (Dexcom G7 #3 ea 04/21/23 Sensor device) dulaglutide 0.75 mg/0.5 mL 0.75 mg (0.5 mL) subcut QWEEK #2 mL 05/19/23 subcutaneous pen injector (Trulicity) insulin regular hum U-500 conc 500 60 unit (0.12 mL) subcut BID #12 mL 05/19/23 unit/mL(3 mL) subcut pen (Humulin R U-500 (Conc) Insulin Kwikpen) metoclopramide HCl 10 mg tablet 10 mg PO QIDACHS #120 tabs 05/19/23 (Reglan) cyanocobalamin (vitamin B-12) 1,000 mcg PO DAILY #90 tabs 05/20/23 1,000 mcg tablet (Vitamin B-12) famotidine 40 mg tablet (Pepcid) 40 mg PO BEDTIME #30 tabs 07/19/23 atorvastatin 40 mg tablet 40 mg PO BEDTIME 90 days #90 tabs 07/23/23 blood sugar diagnostic (FreeStyle #100 strips 08/09/23 Lite Strips) clonidine HCl 0.1 mg tablet 0.1 mg PO BID #180 tabs 08/30/23 losartan 50 mg tablet 50 mg PO DAILY 30 days #30 tabs 09/16/23 Allergies Allergy/AdvReac Type Severity Reaction Status Date / Time amlodipine Allergy Unknown swelling Verified 09/06/23 08:53 amoxicillin Allergy Unknown stomach Verified 09/06/23 08:53 upset lisinopril [LISINOPRIL] Allergy Unknown COUGH Verified 09/06/23 08:53 metformin Allergy Unknown Unknown Verified 09/06/23 08:53 metoprolol [METOPROLOL] Allergy Unknown SWELLING Verified 09/06/23 08:53 canagliflozin [Invokana] AdvReac Intermediate yeast Verified 09/06/23 08:53 infection Review of Systems Review of Systems: ROS unable to be obtained due to ongoing [facility] Past Medical History Medical History 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 right ear Carpal tunnel syndrome of left wrist Carpal tunnel syndrome of right wrist Type 2 diabetes mellitus with hyperglycemia Morbid obesity Vitamin D deficiency Subclinical hypothyroidism Diabetic polyneuropathy associated with type 2 diabetes mellitus Diabetic nephropathy associated with type 2 diabetes mellitus [facility] (current) use of insulin Osteoarthritis of knees, bilateral Carpal tunnel syndrome Asthma Obstructive sleep apnea Obesity Hypertension Hypercholesterolemia Surgical History History of carpal tunnel release of both wrists Carpal tunnel syndrome of left wrist History of colonoscopy History of section Family History Family History Father AAA (abdominal aortic aneurysm) Hypertension TIA (transient ischemic attack) Mother FH: thyroid condition Social History Social History Household Members: Spouse and Children Housing: House Alcohol intake: never Patient Tobacco Use Status: Never used Tobacco e-Cigarette/Vaping Use: Never Used Second Hand Smoke Exposure: No Advance Directives: No Advance Directives Information Provided: No service: No Current occupational status: employed 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 Neuro: unresponsive, no response to painful stimuli. Course Course Course Narrative: with almost 50 minutes of CPR and asystole even after TNK for possible VTE - cardiac resuscitative efforts were deemed futile and CPR was stopped after discussion with family was done. time of 2300 - no cardiac sounds, pupils unequal R pupil 5mm fixed and dilated, L pupil 3mm fixed and dilated, no spontaneous respirations no corneal reflex Medical Decision Making Medical Decision Making MDM Narrative: 58 yo female with PMH of DM, obesity, asthma, ZACHARY, HTN, HLD, just recovered from COVID 2 weeks ago per family reportedly c/o dyspnea and collapsed - per EMS she was asystole for 35 minutes, no airway done had OPA in but not being bagged on arrival to ED - she was difficult airway received 3 epi en route. She was given multiple epi, HCO3 and TNK after discussion with daughter who is RN in case this was saddle - no response with 50+ minutes of CPR and intubation. Remained asytole until the end of code PEA was noted. Suspect she was hypoxic for significant portion prior to arrival as her pupils were unequal and she had significant emesis in her airway that required suctioning by RT and myself to intubate and she was a difficult intubation x 2 attempts. She was cyanotic on arrival Differential Diagnosis Differential Diagnoses: The differential diagnosis associated with the presentation includes IN, respiratory arrest, arrhythmia, VTE Independent Interpretation I performed an independent interpretation of an: Rhythm Strip (asystole, PEA) Independent Historian Clinical information obtained from an independent historian. History obtained from or confirmed by: EMS and Other (family) External Record Review External record reviewed: Inpatient record Procedures Intubation Intubation Type:: Emergency Endotracheal Intubation Intubation Date:: 09/17/23 Time out performed: Yes Laryngoscope: fiber optic video scope ET Tube Size: 7.5 ET Tube Uncuffed: Yes Tube Secured Depth (cm): 22 Tube Secured Location: lips Tube Placement Confirmation: visualized tube passing through cords, equal breath sounds bilaterally, no breath sounds over epigastrium and confirmation by capnometry Patient Tolerated Procedure: other (2 attempts had significant vomitus requiring suctioning in airway) Intubation Complications: difficult intubation Critical Care Time Critical Care Time Critical Care Time: Yes Total Critical Care Time: 35 Attestation: review of records, family discussions I attest to this time spent taking care of the patient Discharge Plan Discharge Clinical Impression: Cardiac arrest Patient Disposition: Discharge Date/Time: 09/18/23 01:10 Date/Time: 09/17/23 23:00
--- NOTE | 2023-09-18 01:09 | PC.NURSE ---
[place] [facility] [place]
[2023-09-20 07:37] LABS: Glucose, Whole Blood 199 mg/dL (60-115)
== END 2023-09-18 01:10 | disposition expired ==
PROVIDERS: Emergency Provider Emergency Medicine; PCP Internal Medicine
DX: I46.9 Cardiac arrest, cause unspecified (principal); Z79.899 Other long term (current) drug therapy
CPT/HCPCS: 31500; 82947; 96374; 99281; 99285; J0171; J0613; J3101